=== PATIENT | female | born 1985 | race Caucasian/White ===

== ENCOUNTER 2023-06-12 10:36 | Outpatient (OUT) | payer MEDICAID, SELFPAY ==
[2023-06-12 11:12] LABS: Basophils Absolute Auto 0.1 10^3/uL (0.0-0.1); Basophils Percent Auto 0.8 % (0.2-2.0); Eosinophils Absolute Auto 0.1 10^3/uL (0.0-0.7); Eosinophils Percent Auto 1.4 % (0.9-7.0); Hematocrit 39.7 % (36.0-48.0); Hemoglobin 12.7 g/dL (12.0-16.0); Immature Granulocytes Abs Auto 0.02 10^3/uL (0.00-0.03); Immature Granulocytes Pct Auto 0.3 % (0.0-0.5); Lymphocytes Absolute Auto 1.5 10^3/uL (1.2-3.8); Lymphocytes Percent Auto 20.6 % (20.5-60.0); Mean Corpuscular Hemoglobin 27.5 pg (26.7-34.0); Mean Corpuscular Volume 85.9 fL (81.0-99.0); Mean Platelet Volume 10.8 fL (9.5-13.5); Monocytes Absolute Auto 0.5 10^3/uL (0.3-0.8); Monocytes Percent Auto 6.8 % (1.7-12.0); Neutrophils Absolute Auto 5.2 10^3/uL (1.4-6.5); Neutrophils Percent Auto 70.1 % (43.0-75.0); Platelet Count 315 10^3/uL (150-450); Red Blood Count 4.62 10^6/uL (4.20-5.40); Red Cell Distribution Width 12.6 % (11.0-15.0); White Blood Count 7.4 10^3/uL (4.0-11.0)
[2023-06-12 11:33] LABS: Alanine Aminotransferase 20 U/L (14-59); Albumin Globulin Ratio 0.9; Albumin Level 3.5 g/dL (3.4-5.0); Alkaline Phosphatase 69 U/L (46-116); Anion Gap 10.4; Aspartate Amino Transferase 14 U/L (15-37); BUN Creatinine Ratio 14.9; Bilirubin Total 0.3 mg/dL (0.2-1.0); Calcium 8.8 mg/dL (8.5-10.1); Carbon Dioxide 29.3 mmol/L (21.0-32.0); Chloride 104 mmol/L (98-107); Chol HDL Ratio 2.3; Cholesterol 173 mg/dL (<=200); Estimated GFR (African America >60 (>=60); Estimated GFR (Non-African Ame >60 (>=60); Globulin 3.8 g/dL; Glucose 103 mg/dL (74-106); HDL Cholesterol 76 mg/dL (40-60); Potassium 3.7 mmol/L (3.5-5.1); Sodium 140 mmol/L (136-145); Total Protein 7.3 g/dL (6.4-8.2); Triglycerides 55 mg/dL (<=150)
[2023-06-12 11:56] LABS: Estimated Average Glucose 128 mg/dL; Glycohemoglobin A1C 6.1 % (4.5-6.2)
[2023-06-12 14:56] LABS: TSH W/ REFLEX FT4 1.846 (0.358-3.740)
[2023-06-13 06:09] LABS: HCV Ab Non Reactive (Non Reactive); HIV Ab/p24 Ag Screen Non Reactive (Non Reactive)
== END 2023-06-12 10:37 | disposition home or self-care (01) ==
LOC: LAB 10:45
PROVIDERS: PCP Nurse Practitioner Primary Care; Visit Provider Nurse Practitioner Primary Care
DX: Z11.59 Encounter for screening for other viral diseases (principal); Z00.00 Encounter for general adult medical examination without abnormal findings; Z13.29 Encounter for screening for other suspected endocrine disorder; Z11.4 Encounter for screening for human immunodeficiency virus [HIV]
CPT/HCPCS: 36415; 80053; 80061; 83036; 84443; 85025; 86803; 87389

== ENCOUNTER 2023-09-02 21:16 | Outpatient (REF) | payer MEDICAID, SELFPAY ==
--- OUTSIDE RECORDS SUMMARY | 2023-09-02 21:19 | XMS_ITS | CCD ---
Author Name Unknown Address [address] [place] [address] Organization [facility] Care Team Providers Care Procurement Clerk Name Role Phone AKUA SELLERS Primary Care Unavailable BELLE, MONIQUE DASILVA Admitting Unavai lable KARASIK, DR RAIN Admitting Unavailable KARASIK, DR RAIN Attending Unavailable KARASIK, DR RAIN Consulting Unavailable ZIEBER, DR EMY Siddiqui Consulting Unavailable KARASIK, DR RAIN Admitting Unavailable KARASIK, DR RAIN Attending Unavailable KARASIK, DR RAIN Consulting Unavailable SHAMMO, GLORIA Admitting Unavailable SHAMMO, GLORIA Attending Unavailable SHAMMO, GLORIA Primary Care Unavailable SHAMMO, GLORIA Consulting Unavailable CAROLYN HOPKINS Admitting Unavailable KELLIECAROLYN BEYER Attending Unavailable SHAMMO, GLORIA Primary Care Unavailable CAROLYN HOPKINS Consulting Unavailable Problems Active Problems Problem Classification Problem Date Documented Date Episodic/Chronic Immunizations and screening for infectious disease (1 source) Encounter for screening for human papillomavirus (HPV); Translations: [ENC SCREENING HUMAN PAPILLOMAVIRUS] Onset: 08-30-2022 Episodic Other screening for suspected conditions (not mental disorders or infectious disease) (6 sources) Encounter for screening for malignant neoplasm of cervix; Translations: [Encounter for screening for cardiovascular disorders] Onset: 05-18-2022 Episodic Past or Other Problems Problem Classification Problem Date Documented Da te Episodic/Chronic Abdominal pain (4 sources) Pelvic and perineal pain; Translations: [PELVIC AND PERINEAL PAIN] Onset: 11-08-2021 Episodic Results Test Name Value Interpretation Reference Range Facility PAP ACOG PANEL 2: 30 to 65on 09-04-2022 . . Normal [facility] Comment on above: Result Comment: Perf ormed at: WB Performed By: #### [id number] #### [facility] [address] [address] [address] Jaquan Egan Age Gdln ACOG Testing 30-65 Normal [facility] Comment on above: Performed By: #### [id number] #### [facility] [address] [place] [address] Dr. Jaquan Egan DIAGNOSIS: Comment Normal [facility] Comment on above: Result Comment: NEGA TIVE FOR INTRAEPITHELIAL LESION OR MALIGNANCY. Performed at: WB Performed By: #### [id number] #### [facility] [address] [place] [address] Dr. Jaquan Egan HPV Aptima Negative Normal Negative [facility] Comment on above: Result Comment: This nucleic acid amplification test detects fourteen high-risk HPV types (16,18,31,33,35,39,45,51,52,56,58,59,66,68) without differentiation. Performed at: =G Performed By: #### [id number] #### [facility] [address] [place] [address] Dr. Jaquan Egan HPV Genotype Reflex Comment Normal [facility] Comment on above: Result Comment: Crit eria not met, HPV Genotype not performed. Performed at: WB Performed By: #### [id number] #### [facility] [address] [place] [address] Dr. Jaquan Egan Methodology: Comment [facility] Comment on above: Result Comment: This liquid based ThinPrep(R) pap test was screened with the use of an image guided system. Performed at: WB Performed By: #### [id number] #### [facility] [address] [place] [address] Dr. Jaquan Egan Note: Comment Normal [facility] Comment on above: Result Comment: The Pap smear is a screening test designed to aid in the detection of premalignant and malignant conditions of the uterine cervix. It is not a diagnostic procedure and should not be used as the sole means of detecting cervical cancer. Both false-positive and false-negative reports do occur. . Performed at: WB Performed By: #### [id number] #### [facility] [address] [place] [address] Dr. Jaquan Egan Performed by: Comment Normal [facility] Comment on above: Result Comment: Duc Lewis, Insurance Licensing Supervisor (ASCP) Performed at: WB Performed By: #### [id number] #### [facility] [address] [place] [address] Dr. Jaquan Egan Specimen adequacy: Comment Normal [facility] Comment on above: Result Comment: Sati sfactory for evaluation. No endocervical component is identified. Performed at: WB Performed By: #### [id number] #### [facility] [address] [place] [address] Dr. Jaquan Egan CBC AUTO DIFFon 05-15-2022 BASO # 0.1 103/ul Normal 0.0-0.1 [facility] Comment on above: Performed By: #### C BC #### [facility] [address] [place] [address] Dr. Jaquan Egan Basophils/100 WBC (Bld) 0.8 % Normal 0.2-2.0 [facility] Comment on above: Performed By: #### C BC #### [facility] [address] [place] [address] Dr. Jaquan Egan EO # 0.1 103/ul Normal 0.0-0.7 [facility] Comment on above: Performed By: #### C BC #### [facility] [address] [place] [address] Dr. Jaquan Egan Eosinophils/100 WBC (Bld) 1.6 % Normal 0.9-7.0 [facility] Comment on above: Performed By: #### C BC #### [facility] [address] [place] [address] Dr. Jaquan Egan Erythrocyte distribution width (RBC) [Ratio] 12.8 % Normal 11.0-15.0 [facility] Comment on above: Performed By: #### C BC #### [facility] [address] [place] [address] Dr. Jaquan Egan Hematocrit (Bld) [Volume fraction] 41.5 % Normal 36.0-48.0 [facility] Comment on above: Performed By: #### C BC #### [facility] [address] [place] [address] Dr. Jaquan Egan Hemoglobin (Bld) [Mass/Vol] 13.0 g/dL Normal 12.0-16.0 [facility] Comment on above: Performed By: #### C BC #### [facility] [address] [place] [address] Dr. Jaquan Egan IG # 0.02 10e3/ul Normal 0.00-0.03 [facility] Comment on above: Performed By: #### C BC #### [facility] [address] [place] [address] Dr. Jaquan Egan IG % 0.3 % Normal 0.0-0.5 [facility] Comment on above: Performed By: #### C BC #### [facility] [address] [place] [address] Dr. Jaquan Egan LYMPH # 1.7 103/ul Normal 1.2-3.8 [facility] Comment on above: Performed By: #### C BC #### [facility] [address] [place] [address] Dr. Jaquan Egan Lymphocytes/100 WBC (Bld) 22.2 % Normal 20.5-60.0 [facility] Comment on above: Performed By: #### C BC #### [facility] [address] [place] [address] Dr. Jaquan Egan MANUAL DIFF REQ NO Normal [facility] Comment on above: Performed By: #### C BC #### [facility] [address] [place] [address] Dr. Jaquan Egan MCH (RBC) [Entitic mass] 26.5 pg Critically low 26.7-34.0 [facility] Comment on above: Performed By: #### C BC #### [facility] [address] [place] [address] Dr. Jaquan Egan MCHC (RBC) [Mass/Vol] 31.3 g/dL Normal 29.9-35.2 [facility] Comment on above: Performed By: #### C BC #### [facility] [address] [place] [address] Dr. Jaquan Egan MCV (RBC) [Entitic vol] 84.7 fL Normal 81.0-99.0 [facility] Comment on above: Performed By: #### C BC #### [facility] [address] [place] [address] Dr. Jaquan Egan MONO # 0.5 103/ul Normal 0.3-0.8 [facility] Comment on above: Performed By: #### C BC #### [facility] [address] [place] [address] Dr. Jaquan Egan Monocytes/100 WBC (Bld) 6.8 % Normal 1.7-12.0 [facility] Comment on above: Performed By: #### C BC #### [facility] [address] [place] [address] Dr. Jaquan Egan NEUT # 5.1 103/ul Normal 1.4-6.5 [facility] Comment on above: Performed By: #### C BC #### [facility] [address] [place] [address] Dr. Jaquan Egan Neutrophils/100 WBC (Bld) 68.3 % Normal 43.0-75.0 [facility] Comment on above: Performed By: #### C BC #### [facility] [address] [place] [address] Dr. Jaquan Egan Platelet mean volume (Bld) [Entitic vol] 10.0 fL Normal 9.5-13.5 [facility] Comment on above: Performed By: #### C BC #### [facility] [address] [place] [address] Dr. Jaquan Egan PLT 361 103/ul Normal 150-450 [facility] Comment on above: Performed By: #### C BC #### [facility] [address] [place] [address] Dr. Jaquan Egan RBC 4.90 106/ul Normal 4.20-5.40 [facility] Comment on above: Performed By: #### C BC #### [facility] [address] [place] [address] Dr. Jaquan Egan WBC 7.5 103/ul Normal 4.0-11.0 [facility] Comment on above: Performed By: #### C BC #### [facility] [address] [address] [address] Jaquan Egan GLYCOHEMOGLOBIN A1Con 2021 ADA RECOMMENDATION SEE BELOW Normal [facility] Comment on above: Result Comment: ADA RECOMMENDED LIMIT 4.0 - 6.0 ADA THERAPEUTIC TARGET < 7.0 ACTION SUGGESTED > 7.0 Performed By: #### A 1C #### [facility] [address] [address] [address] Jaquan Egan Glucose [Mass/Vol] 111 mg/dL Normal [facility] Comment on above: Performed By: #### A 1C #### [facility] [address] [address] [address] Jaquan Egan HbA1c (Bld) [Mass fraction] 5.5 % Normal 4.5-6.2 [facility] Comment on above: Performed By: #### A 1C #### [facility] [address] [address] [address] Jaquan Egan LIPID PROFILEon 05-15-2022 CHOL-HDL RATIO NORM SEE BELOW Normal [facility] Comment on above: Result Comment: 3.3 - 4.4 LOW RISK 4.4 - 7.1 AVERAGE RISK 7.1 - 11.0 MODERATE RISK >11.0 HIGH RISK Performed By: #### L IPID, CMP, TSH #### [facility] [address] [address] [address] Jaquan Egan Cholesterol [Mass/Vol] 182 mg/dL Normal <=200 [facility] Comment on above: Performed By: #### L IPID, CMP, TSH #### [facility] [address] [address] [address] Jaquan Egan Cholesterol in HDL [Mass/Vol] 68 mg/dL Critically high 40-60 [facility] Comment on above: Performed By: #### L IPID, CMP, TSH #### [facility] [address] [address] [address] Jaquan Egan Cholesterol in LDL [Mass/Vol] 105.8 mg/dL Normal [facility] Comment on above: Performed By: #### L IPID, CMP, TSH #### [facility] [address] [address] [address] Jaquan Egan Cholesterol.total/Cho lesterol in HDL [Mass ratio] 2.7 {ratio} Normal [facility] Comment on above: Performed By: #### L IPID, CMP, TSH #### [facility] [address] [address] [address] Jaquan Egan HDL NORMAL > or = 60 mg/dl - LO W CARDIOVASCULAR RISK <40 mg/dl - HIGH CARDIOVASCULAR RISK Normal [facility] Comment on above: Performed By: #### L IPID, CMP, TSH #### [facility] [address] [address] [address] Jaquan Egan LDL CALC NORMAL SEE BELOW Normal [facility] Comment on above: Result Comment: <100 mg/dl OPTIMAL 100 - 129 mg/dl NEAR OR ABOVE OPTIMAL 130 - 159 mg/dl BORDERLINE HIGH 160 - 189 mg/dl HIGH >190 mg/dl VERY HIGH Performed By: #### L IPID, CMP, TSH #### [facility] [address] [address] [address] Jaquan Egan Triglyceride [Mass/Vol] 41 mg/dL Normal <=150 [facility] Comment on above: Performed By: #### L IPID, CMP, TSH #### [facility] [address] [address] [address] Jaquan Egan VLDL CALC 8.2 mg/dL Normal [facility] Comment on above: Performed By: #### L IPID, CMP, TSH #### [facility] [address] [address] [address] Jaquan Egan PROF 14(COMP METB)on 022 Albumin [Mass/Vol] 3.7 g/dL Normal 3.4-5.0 [facility] Comment on above: Performed By: #### L IPID, CMP, TSH #### [facility] [address] [address] [address] Jaquan Egan Albumin/Globulin [Mass ratio] 0.9 {ratio} Normal [facility] Comment on above: Performed By: #### L IPID, CMP, TSH #### [facility] [address] [address] [address] Jaquan Egan ALP [Catalytic activity/Vol] 85 U/L Normal 46-116 [facility] Comment on above: Performed By: #### L IPID, CMP, TSH #### [facility] [address] [address] [address] Jaquan Egan ALT [Catalytic activity/Vol] 18 U/L Normal 14-59 [facility] Comment on above: Performed By: #### L IPID, CMP, TSH #### [facility] [address] [address] [address] Jaquan Egan Anion gap [Moles/Vol] 9.8 mmol/L Normal [facility] Comment on above: Performed By: #### L IPID, CMP, TSH #### [facility] [address] [address] [address] Jaquan Egan AST [Catalytic activity/Vol] 13 U/L Critically low 15-37 [facility] Comment on above: Performed By: #### L IPID, CMP, TSH #### [facility] [address] [address] [address] Jaquan Egan Bilirubin [Mass/Vol] 0.3 mg/dL Normal 0.2-1.0 [facility] Comment on above: Performed By: #### L IPID, CMP, TSH #### [facility] [address] [address] [address] Jaquan Egan Calcium [Mass/Vol] 8.8 mg/dL Normal 8.5-10.1 [facility] Comment on above: Performed By: #### L IPID, CMP, TSH #### [facility] [address] [address] [address] Jaquan Egan Chloride [Moles/Vol] 104 mmol/L Normal 98-107 [facility] Comment on above: Performed By: #### L IPID, CMP, TSH #### [facility] [address] [address] [address] Jaquan Egan CO2 [Moles/Vol] 26.0 mmol/L Normal 21.0-32.0 [facility] Comment on above: Performed By: #### L IPID, CMP, TSH #### [facility] [address] [address] [address] Jaquan Egan Creatinine [Mass/Vol] 0.78 mg/dL Normal 0.55-1.02 [facility] Comment on above: Performed By: #### L IPID, CMP, TSH #### [facility] [address] [address] [address] Jaquan Egan EGFR-AF ECUADOREAN >60 Normal >=60 [facility] Comment on above: Performed By: #### L IPID, CMP, TSH #### [facility] [address] [address] [address] Jaquan Egan EGFR-NON AF ECUADOREAN >60 Normal >=60 [facility] Comment on above: Performed By: #### L IPID, CMP, TSH #### [facility] [address] [address] [address] Jaquan Egan Globulin (S) [Mass/Vol] 4.0 g/dL Normal [facility] Comment on above: Performed By: #### L IPID, CMP, TSH #### [facility] [address] [address] [address] Jaquan Egan Glucose [Mass/Vol] 100 mg/dL Normal 74-106 [facility] Comment on above: Performed By: #### L IPID, CMP, TSH #### [facility] [address] [address] [address] Jaquan Egan Potassium [Moles/Vol] 3.8 mmol/L Normal 3.5-5.1 [facility] Comment on above: Performed By: #### L IPID, CMP, TSH #### [facility] [address] [address] [address] Jaquan Egan Protein [Mass/Vol] 7.7 g/dL Normal 6.4-8.2 [facility] Comment on above: Performed By: #### L IPID, CMP, TSH #### [facility] [address] [address] [address] Jaquan Egan Sodium [Moles/Vol] 136 mmol/L Normal 136-145 [facility] Comment on above: Performed By: #### L KB ESPINOZA, TSH #### [facility] [address] [place], [place] [address] Dr. Jaquan Egan Urea nitrogen [Mass/Vol] 12.0 mg/dL Normal 7.0-18.0 [facility] Comment on above: Performed By: #### L KB ESPINOZA, TSH #### [facility] [address] [place], [place] [address] Dr. Jaquan Egan Urea nitrogen/Creatinine [Mass ratio] 15.4 mg/mg Normal [facility] Comment on above: Performed By: #### L KB ESPINOZA, TSH #### [facility] [address] [place], [place] [address] Dr. Jaquan Egan TSHon 05-15-2022 TSH 2.187 uIU/mL Normal 0.358-3.740 [facility] Comment on above: Performed By: #### L KB ESPINOZA, TSH #### [facility] [address] [place], [place] [address] Dr. Jaquan Egan US PELVIS AND TRANSVAGon US PELVIS AND TRANSVAG EXAMINATION: US PELVIS AND TRANSVAG HISTORY: Pelvic and perineal pain COMPARISON: Ultrasound pelvis 01/03/2021 TECHNIQUE: Transabdominal and transvaginal sonographic examination. FINDINGS: UTERUS: Hysterectomy. RIGHT OVARY: Normal size and appearance. Duplex Doppler demonstrates normal waveform and flow; resistive index 0.7. Ovary size: 2.9 x 1.3 x 1.9 cm LEFT OVARY: Normal size and appearance. Duplex Doppler demonstrates normal waveform and flow; resistive index 0.6. Ovary size: 3.0 x 1.1 x 2.2 cm CUL-DE-SAC: Unremarkable. No significant free fluid. BLADDER: Unremarkable. OTHER: None. IMPRESSION: 1. Unremarkable post hysterectomy ultrasound. No suspicious findings. Electronically authenticated by: EMY MORTON Date: 2021-11-08 10:51 Normal [facility] PAP ACOG PANEL 2: 30 to 65on 11-07-2021 . . Normal [facility] Comment on above: Result Comment: Perf ormed at: WB Performed By: #### [id number] #### [facility] [address] [place] [address] Dr. Jaquan Egan Age Gdln ACOG Testing 30-65 [facility] Comment on above: Performed By: #### 4 [id number] #### [facility] [address] [place] [address] Dr. Jaquan Egan DIAGNOSIS: Comment Normal [facility] Comment on above: Result Comment: NEGA TIVE FOR INTRAEPITHELIAL LESION OR MALIGNANCY. Performed at: WB Performed By: #### 4 [id number] #### [facility] [address] [place] [address] Dr. Jaquan Egan HPV Aptima Negative Normal [facility] Comment on above: Result Comment: This nucleic acid amplification test detects fourteen high-risk HPV types (16,18,31,33,35,39,45,51,52,56,58,59,66,68) without differentiation. Performed at: =G Performed By: #### [id number] #### [facility] [address] [place] [address] Dr. Jaquan Egan Methodology: Comment [facility] Comment on above: Result Comment: This liquid based ThinPrep(R) pap test was screened with the use of an image guided system. Performed at: WB Performed By: #### 4 [id number] #### [facility] [address] [place] [address] Dr. Jaquan Egan Note: Comment [facility] Comment on above: Result Comment: The Pap smear is a screening test designed to aid in the detection of premalignant and malignant conditions of the uterine cervix. It is not a diagnostic procedure and should not be used as the sole means of detecting cervical cancer. Both false-positive and false-negative reports do occur. . Performed at: WB Performed By: #### [id number] #### [facility] [address] [place] [address] Dr. Jaquan Egan Performed by: Comment Normal [facility] Comment on above: Result Comment: Guevara Terrance, Insurance Licensing Supervisor (ASCP) Performed at: WB Performed By: #### 4 [id number] #### [facility] [address] [place], [place] [address] Dr. Jaquan Egan Specimen adequacy: Comment Normal [facility] Comment on above: Result Comment: Sati sfactory for evaluation. No endocervical component is identified. Performed at: WB Performed By: #### 4 [id number] #### [facility] [address] [place], [place] [address] Dr. Jaquan Egan Encounters Encounter Date Encounter Type Care Provider Facility Start: 08-29-2022 End: 08-29-2022 ambulatory CAROLYN HOPKINS Facility:[facility] Start: 05-18-2022 [facility]counter [facility] l [facility]: 05-15-2022 End: 05-16-2022 ambulatory GLORIA DARIA Facility:[facility] Start: 05-15-2022 End: 05-16-2022 Encounter for general adult medical examination without abnormal findings GLORIA DARIA Facility:[facility] Start: 11-08-2021 End: 11-09-[address] KOFFI GALLARDO Facility:[facility] Start: 10-31-2021 End: 10-31-[address] KOFFI GALLARDO Facility:[facility] Start: 02-20-2021 End: 02-24-2021 ambulatory [facility] Payers Date Payer Category Payer Unknown [id number] 1984 Unknown [id number] 09.13.83 [id number] 1984 Unknown [id number] 09.13.83 [id number] 1984 Unknown [id number] 09.13.83 [id number] 1984 Unknown [id number] 09.13.83 [id number] 1959 Unknown [id number] Summary Purpose Family History No Family History Records FoundNo Family History Records Found Advance Directives No Advanced Directives Records FoundNo Advanced Directives Records Found Additional Source Comments INFORMATION SOURCE (unrecogn ized section and content) DATE CREATED AUTHOR 02/25/2021 [facility] DATE CREATED AUTHOR AUTHOR'S MALIA NOONAN 09/04/[address] [facility] FOR RECORDS PERTAINING TO PATIENTS WHO ARE OR HAVE BEEN ENROLLED IN A CHEMICAL DEPENDENCY/SUBSTANCEABUSE PROGRAM, SOME INFORMATION MAY BE OMITTED. This clinical summary was aggregated from multiple sources. Caution should be exercised in using it in the provision of clinical care. This summary normalizes information from multiple sources, and as a consequence, information in this document may materially change the coding, format and clinical context of patient data. In addition, data may be omitted in some cases. CLINICAL DECISIONS SHOULD BE BASED ON THE PRIMARY CLINICAL RECORDS. [facility] [employer] provides no warranty or guarantee of the accuracy or completeness of information in this document.
[2023-09-05 15:09] LABS: Age Gdln ACOG Testing Note (.); HPV Aptima Negative (Negative); IGP, Aptima HPV, rfx 16/18,45 Note (.)
== END 2023-09-02 21:17 | disposition home or self-care (01) ==
LOC: LAB 21:16
PROVIDERS: PCP Nurse Practitioner Primary Care; Visit Provider Obstetrics & Gynecology
DX: Z01.419 Encounter for gynecological examination (general) (routine) without abnormal findings (principal)
CPT/HCPCS: 87624; G0145

== ENCOUNTER 2024-09-18 09:32 | Outpatient (RCR) | payer MEDICAID, SELFPAY | END 2024-09-25 09:48 | disposition home or self-care (01) | LOC: PT 09:32 | PROVIDERS: PCP Nurse Practitioner Primary Care; Visit Provider Internal Medicine | DX: M54.12 Radiculopathy, cervical region (principal) | CPT/HCPCS: 97110; 97140; 97162 ==

== ENCOUNTER 2024-09-25 17:43 | Emergency (ER) | payer MEDICAID, SELFPAY ==
[2024-09-25 17:48] VITALS: BP 142/84; PULSE 110; TEMP 37.1; O2SAT 99; BMI 29.8
--- OUTSIDE RECORDS SUMMARY | 2024-09-25 18:24 | XMS_ITS | CCD ---
Author Organization [facility] Care Team Providers Care Housekeeper Child Care Name Role Phone AKUA SELLERS Primary Care Unavailable BARBRA, MONIQUE DASILVA Admitting Unavai lable KARASIK, DR RAIN Admitting Unavailable KARASIK, DR RAIN Attending Unavailable KARASIK, DR RAIN Consulting Unavailable ZIEBER, DR EMY Siddiqui Consulting Unavailable KARASIK, DR RAIN Admitting Unavailable KARASIK, DR RAIN Attending Unavailable KARASIK, DR RAIN Consulting Unavailable SHAMMO, GLORIA Admitting Unavailable SHAMMO, GLORIA Attending Unavailable SHAMMO, GLORIA Primary Care Unavailable SHAMMO, GLORIA Consulting Unavailable CAROLYN HOPKINS Admitting Unavailable CAROLYN HOPKINS Attending Unavailable SHAMMO, GLORIA Primary Care Unavailable CAROLYN HOPKINS Consulting Unavailable Unavailable Primary Care Provider UnavailLALITHA Kumar Attending Unavailable CELE ONEAL Attending Unavailable Medications Current Medications Medication Drug Class(es) Dates Sig (Normalized) Sig (Original) amitriptyline hydrochloride 25 mg oral tablet (2 sources) Tricyclic Antidepressant Start: 09-19-2023 amitriptyline (Elavil) 25 MG tablet TAKE 1/2-1 TABLET AT EVERY DAY AT BEDTIME 09/19/2023 Active Cannabinoids (medical cannabis) (5 sources) Cannabinoids (medical cannabis) Medical Marijuana Active Cannabinoids (me dical cannabis) Medical Marijuana 0 Active emtricitabine 200 mg / tenofovir disoproxil fumarate 300 mg oral tablet (2 sources) Human Immunodeficiency Virus Nucleoside Analog Reverse Transcriptase Inhibitor Start: 01-16-2024 take 1 tablet by mouth once daily emtricitabine-tenofovir DF (Truvada) 200-300 MG tablet Take 1 tablet by mouth Daily 01/16/2024 Active tiZANidine 4 mg oral tablet (5 sources) Central alpha-2 Adrenergic Agonist Start: 08-13-2023 End: 04-28-2024 take 1 tablet by mouth at bedtime tiZANidine (Zanaflex) 4 MG tablet TAKE 1/2 TO 1 TABLET BY MOUTH AT BEDTIME 08/13/2023 04/28/2024 Discontinued 24 hr venlafaxine 150 mg extended release oral capsule (7 sources) Serotonin and Norepinephrine Reuptake Inhibitor Start: 03-27-2024 take 1 capsule by mouth once daily at mealtime venlafaxine XR (Effexor XR) 150 MG 24 hr capsule TAKE 1 CAPSULE BY MOUTH EVERY DAY WITH FOOD FOR 30 DAYS 03/27/2024 Active Start: 06-26-2023 take 1 capsule by [facility] once daily at mealtime venlafaxine XR (Effexor XR) 37.5 MG 24 hr capsule TAKE 1 CAPSULE BY MOUTH EVERY DAY WITH FOOD FOR 30 DAYS 06/26/2023 Active Problems Active Problems Problem Classification Problem Date Documented Date Episodic/Chronic Immunizations and screening for infectious disease (1 source) Encounter for screening for human papillomavirus (HPV); Translations: [ENC SCREENING HUMAN PAPILLOMAVIRUS] Onset: 08-30-2022 Episodic Neoplasms of unspecified nature or uncertain behavior (2 sources) Neoplastic disease; Translations: [Neoplasm of unspecified behavior of bone, soft tissue, and skin] 04-28-2024 Episodic Other screening for suspected conditions (not [...] Test Name Value Interpretation Reference Range Facility No Panel Informationon 04-28 Type of biopsy: tangential Informed consent: discussed and consent obtained Informed consent comment: The risks and benefits of the biopsy were discussed. Risks include but are not limited to bleeding, infection, scarring, pain, and nerve damage. An opportunity to ask questions prior to the procedure was permitted and all questions were answered. Patient was prepped and draped in usual sterile fashion: area cleansed with alcohol. Anesthesia: the lesion was anesthetized in a standard fashion Anesthetic: 1% lidocaine w/ epinephrine 1-100,000 buffered w/ 8.4% NaHCO3 Instrument used: DermaBlade Hemostasis achieved with: electrodesiccation Outcome: patient tolerated procedure well Outcome comment: The specimen was placed in a prelabeled formalin container to be sent for pathology Post-procedure details: sterile dressing applied and wound care instructions given Post-procedure details comment: Emphasized need to contact clinic for any signs of infection, uncontrollable bleeding, or complications. Dressing type: bandage Additional details: Photo taken Amount of lidocaine used: 1.0 cc [facility] IGP,APTIMA HPV,AGE GDLNon AGE GDLN ACOG TESTING Note . [facility] Comment on above: TESTS RESULT FLAG UN ITS REF RANGE LAB Clinician Provided Cytology Information Source.............Vagina No. of containers..01 ThinPrep Vial Age Algo ACOG Nataly... FLAG LEGEND: L-Low Normal,H-High Normal,LL-Alert Low,HH-Alert High <-Panic Low,>-Panic High,A-Abnormal,AA-Critical Abnormal Performed at: 01 =G [facility] [place] [place] [address] Yaima Gould MD, HPV APTIMA Negative Negative [facility] Comment on above: This nucleic acid am plification test detects fourteen high- risk HPV types (16,18,31,33,35,39,45,51,52,56,58,59,66,68) without differentiation. Performed at: =G [address], [place] [id number] Vpk Teacher: Yaima Gould MD, Phone: [phone] Performed at: - [address] [id number] Vpk Teacher: Yaima Gould MD, Phone: [phone] IGP, APTIMA HPV, RFX 16/18,45 Note . [facility] Comment on above: TESTS RESULT FLAG UN ITS REF RANGE LAB DIAGNOSIS: 02 NEGATIVE FOR INTRAEPITHELIAL LESION OR MALIGNANCY. Specimen adequacy: 02 Satisfactory for evaluation. Performed by: Irish Melendez, Traffic Signal Supervisor Maintenance ([facility]) . 02 Note: Note 02 The Pap smear is a screening test designed to aid in the detection of premalignant and malignant conditions of the uterine cervix. It is not a diagnostic procedure and should not be used as the sole means of detecting cervical cancer. Both false-positive and false-negative reports do occur. Test Methodology: Note 02 This liquid based ThinPrep(R) pap test was screened with the use of an image guided system. HPV Genotype Reflex Note 02 Criteria not met, HPV Genotype not performed. FLAG LEGEND: L-Low Normal,H-High Normal,LL-Alert Low,HH-Alert High <-Panic Low,>-Panic High,A-Abnormal,AA-Critical Abnormal Performed at: [facility] [address] [place] [address] Yaima Gould MD, SPATULA-ALONE VAGINA [facility] URETHRITIS/DISCHARGE PLUS VA GINITIS (HTRX)on 09-04-2023 ATOPOBIUM VAGINAE 0 [facility] ATOPOBIUM VAGINAE Not detected [facility] BVAB 2,3 (BACTERIAL VAGINOSIS ASSOCIATED BACTERIA 2, 3); MOBILUNCUS SPP 0 [facility] Healthcare BVAB 2,3 (BACTERIAL VAGINOSIS ASSOCIATED BACTERIA 2, 3); MOBILUNCUS SPP Not detected [facility] TERRANCE ALBICANS, PARAPSILOSIS, TROPICALIS 0 [facility] TERRANCE ALBICANS, PARAPSILOSIS, TROPICALIS Not detected [facility] TERRANCE GLABRATA 0 [facility] TERRANCE GLABRATA Not detected [facility] TERRANCE KRUSEI 0 [facility] TERRANCE KRUSEI Not detected [facility] CHLAMYDIA TRACHOMATIS 0 [facility] CHLAMYDIA TRACHOMATIS Not detected [facility] Healthcare GARDNERELLA VAGINALIS 0 [facility] GARDNERELLA VAGINALIS Not detected [facility] MEGASPHAERA (TYPES 1, 2) 0 [facility] Healthcare MEGASPHAERA (TYPES 1, 2) Not detected [facility] MYCOPLASMA GENITALIUM 0 [facility] MYCOPLASMA GENITALIUM Not detected [facility] NEISSERIA GONORRHOEAE 0 [facility] Healthcare NEISSERIA GONORRHOEAE Not detected [facility] TRICHOMONAS VAGINALIS 0 [facility] TRICHOMONAS VAGINALIS Not detected [facility] Healthcare PAP ACOG PANEL 2: 30 to 65on 09-04-2022 . . Normal [facility] Comment on above: Result Comment: Perf ormed at: WB Performed By: #### [id number] #### [facility] [address] [address] [address] Jaquan Egan Age Gdln ACOG Testing 30-65 Normal [facility] Comment on above: Performed By: #### [id number] #### [facility] [address] [address] [address] Jaquan Egan DIAGNOSIS: Comment Normal [facility] Comment on above: Result Comment: NEGA TIVE FOR INTRAEPITHELIAL LESION OR MALIGNANCY. Performed at: WB Performed By: #### [id number] #### [facility] [address] [address] [address] Jaquan Egan HPV Aptima Negative Normal Negative [facility] Comment on above: Result Comment: This nucleic acid amplification test detects fourteen high-risk HPV types (16,18,31,33,35,39,45,51,52,56,58,59,66,68) without differentiation. Performed at: =G Performed By: #### [id number] #### [facility] [address] [place] [address] Dr. Jaquan Egan HPV Genotype Reflex Comment Normal [facility] Comment on above: Result Comment: Crit eria not met, HPV Genotype not performed. Performed at: WB Performed By: #### [id number] #### [facility] [address] [place] [address] Dr. Jaquan Egan Methodology: Comment Normal [facility] Comment on above: Result Comment: This liquid based ThinPrep(R) pap test was screened with the use of an image guided system. Performed at: WB Performed By: #### [id number] #### [facility] [address] [place] [address] Dr. Jaquan Egan Note: Comment Normal [facility] Comment on above: Result Comment: The Pap smear is a screening test designed to aid in the detection of premalignant and malignant conditions of the uterine cervix. It is not a diagnostic procedure and should not be used as the sole means of detecting cervical cancer. Both false-positive and false-negative reports do occur. . Performed at: WB Performed By: #### [id number] #### [facility] [address] [place] [address] Dr. Jaquan Egan Performed by: Comment Normal [facility] Comment on above: Result Comment: Duc Lewis, Traffic Signal Supervisor Maintenance ([facility]) Performed at: WB Performed By: #### [id number] #### [facility] [address] [place] [address] Dr. Jaquan Egan Specimen adequacy: Comment Normal [facility] Comment on above: Result Comment: Sati sfactory for evaluation. No endocervical component is identified. Performed at: WB Performed By: #### [id number] #### [facility] [address] [place] [address] Dr. Jaquan Egan CBC AUTO DIFFon 05-15-2022 BASO # 0.1 103/ul Normal 0.0-0.1 [facility] Comment on above: Performed By: #### C BC #### [facility] [address] [place] [address] Dr. Jaquan Egan Basophils/100 WBC (Bld) 0.8 % Normal 0.2-2.0 [facility] Comment on above: Performed By: #### C BC #### [facility] [address] [place] [address] Dr. Jaquan Egan EO # 0.1 103/ul Normal 0.0-0.7 [facility] Comment on above: Performed By: #### C BC #### [facility] [address] [place] [address] Dr. Jaquan Egan Eosinophils/100 WBC (Bld) 1.6 % Normal 0.9-7.0 [facility] Comment on above: Performed By: #### C BC #### [facility] [address] [place] [address] Dr. Jaquan Egan Erythrocyte distribution width (RBC) [Ratio] 12.8 % Normal 11.0-15.0 [facility] Comment on above: Performed By: #### C BC #### [facility] [address] [place] [address] Dr. Jaquan Egan Hematocrit (Bld) [Volume fraction] 41.5 % Normal 36.0-48.0 [facility] Comment on above: Performed By: #### C BC #### [facility] [address] [place] [address] Dr. Jaquan Egan Hemoglobin (Bld) [Mass/Vol] 13.0 g/dL Normal 12.0-16.0 [facility] Comment on above: Performed By: #### C BC #### [facility] [address] [place] [address] Dr. Jaquan Egan IG # 0.02 10e3/ul Normal 0.00-0.03 [facility] Comment on above: Performed By: #### C BC #### [facility] [address] [place] [address] Dr. Jaquan Egan IG % 0.3 % Normal 0.0-0.5 [facility] Comment on above: Performed By: #### C BC #### [facility] [address] [place] [address] Dr. Jaquan Egan LYMPH # 1.7 103/ul Normal 1.2-3.8 [facility] Comment on above: Performed By: #### C BC #### [facility] [address] [place] [address] Dr. Jaquan Egan Lymphocytes/100 WBC (Bld) 22.2 % Normal 20.5-60.0 [facility] Comment on above: Performed By: #### C BC #### [facility] [address] [place] [address] Dr. Jaquan Egan MANUAL DIFF REQ NO Normal [facility] Comment on above: Performed By: #### C BC #### [facility] [address] [place] [address] Dr. Jaquan Egan MCH (RBC) [Entitic mass] 26.5 pg Critically low 26.7-34.0 [facility] Comment on above: Performed By: #### C BC #### [facility] [address] [place] [address] Dr. Jaquan Egan MCHC (RBC) [Mass/Vol] 31.3 g/dL Normal 29.9-35.2 [facility] Comment on above: Performed By: #### C BC #### [facility] [address] [place] [address] Dr. Jaquan Egan MCV (RBC) [Entitic vol] 84.7 fL Normal 81.0-99.0 [facility] Comment on above: Performed By: #### C BC #### [facility] [address] [place] [address] Dr. Jaquan Egan MONO # 0.5 103/ul Normal 0.3-0.8 [facility] Comment on above: Performed By: #### C BC #### [facility] [address] [place] [address] Dr. Jaquan Egan Monocytes/100 WBC (Bld) 6.8 % Normal 1.7-12.0 [facility] Comment on above: Performed By: #### C BC #### [facility] [address] [address] [address] Jaquan Egan NEUT # 5.1 103/ul Normal 1.4-6.5 [facility] Comment on above: Performed By: #### C BC #### [facility] [address] [address] [address] Jaquan Egan Neutrophils/100 WBC (Bld) 68.3 % Normal 43.0-75.0 [facility] Comment on above: Performed By: #### C BC #### [facility] [address] [address] [address] Jaquan Egan Platelet mean volume (Bld) [Entitic vol] 10.0 fL Normal 9.5-13.5 [facility] Comment on above: Performed By: #### C BC #### [facility] [address] [place] [address] Dr. Jaquan Egan PLT 361 103/ul Normal 150-450 [facility] Comment on above: Performed By: #### C BC #### [facility] [address] [place] [address] Dr. Jaquan Egan RBC 4.90 106/ul Normal 4.20-5.40 [facility] Comment on above: Performed By: #### C BC #### [facility] [address] [place] [address] Dr. Jaquan Egan WBC 7.5 103/ul Normal 4.0-11.0 [facility] Comment on above: Performed By: #### C BC #### [facility] [address] [place] [address] Dr. Jaquan Egan GLYCOHEMOGLOBIN A1Con 2021 ADA RECOMMENDATION SEE BELOW Normal [facility] Comment on above: Result Comment: ADA RECOMMENDED LIMIT 4.0 - 6.0 ADA THERAPEUTIC TARGET < 7.0 ACTION SUGGESTED > 7.0 Performed By: #### A 1C #### [facility] [address] [place] [address] Dr. Jaquan Egan Glucose [Mass/Vol] 111 mg/dL Normal [facility] Comment on above: Performed By: #### A 1C #### [facility] [address] [address] [address] Jaquan Egan HbA1c (Bld) [Mass fraction] 5.5 % Normal 4.5-6.2 [facility] Comment on above: Performed By: #### A 1C #### [facility] [address] [address] [address] Jaquan Egan LIPID PROFILEon 05-15-2022 CHOL-HDL RATIO NORM SEE BELOW Normal [facility] Comment on above: Result Comment: 3.3 - 4.4 LOW RISK 4.4 - 7.1 AVERAGE RISK 7.1 - 11.0 MODERATE RISK >11.0 HIGH RISK Performed By: #### L IPID, CMP, TSH #### [facility] [address] [address] [address] Jaquan Egan Cholesterol [Mass/Vol] 182 mg/dL Normal <=200 [facility] Comment on above: Performed By: #### L IPID, CMP, TSH #### [facility] [address] [address] [address] Jaquan Egan Cholesterol in HDL [Mass/Vol] 68 mg/dL Critically high 40-60 [facility] Comment on above: Performed By: #### L IPID, CMP, TSH #### [facility] [address] [address] [address] Jaquan Egan Cholesterol in LDL [Mass/Vol] 105.8 mg/dL Normal [facility] Comment on above: Performed By: #### L IPID, CMP, TSH #### [facility] [address] [address] [address] Jaquan Egan Cholesterol.total/Ch olesterol in HDL [Mass ratio] 2.7 {ratio} Normal [facility] Comment on above: Performed By: #### L IPID, CMP, TSH #### [facility] [address] [address] [address] Jaquan Egan HDL NORMAL > or = 60 mg/dl - LO W CARDIOVASCULAR RISK <40 mg/dl - HIGH CARDIOVASCULAR RISK Normal [facility] Comment on above: Performed By: #### L IPID, CMP, TSH #### [facility] [address] [address] [address] Jaquan Egan LDL CALC NORMAL SEE BELOW Normal [facility] Comment on above: Result Comment: <100 mg/dl OPTIMAL 100 - 129 mg/dl NEAR OR ABOVE OPTIMAL 130 - 159 mg/dl BORDERLINE HIGH 160 - 189 mg/dl HIGH >190 mg/dl VERY HIGH Performed By: #### L IPID, CMP, TSH #### [facility] [address] [address] [address] Jaquan Egan Triglyceride [Mass/Vol] 41 mg/dL Normal <=150 [facility] Comment on above: Performed By: #### L IPID, CMP, TSH #### [facility] [address] [address] [address] Jaquan Egan VLDL CALC 8.2 mg/dL Normal [facility] Comment on above: Performed By: #### L IPID, CMP, TSH #### [facility] [address] [address] [address] Jaquan Egan PROF 14(COMP METB)on 05-15- 022 Albumin [Mass/Vol] 3.7 g/dL Normal 3.4-5.0 [facility] Comment on above: Performed By: #### L IPID, CMP, TSH #### [facility] [address] [address] [address] Jaquan Egan Albumin/Globulin [Mass ratio] 0.9 {ratio} Normal [facility] Comment on above: Performed By: #### L IPID, CMP, TSH #### [facility] [address] [address] [address] Jaquan Egan ALP [Catalytic activity/Vol] 85 U/L Normal 46-116 [facility] Comment on above: Performed By: #### L IPID, CMP, TSH #### [facility] [address] [address] [address] Jaquan Egan ALT [Catalytic activity/Vol] 18 U/L Normal 14-59 [facility] Comment on above: Performed By: #### L IPID, CMP, TSH #### [facility] [address] [address] [address] Jaquan Egan Anion gap [Moles/Vol] 9.8 mmol/L Normal [facility] Comment on above: Performed By: #### L IPID, CMP, TSH #### [facility] [address] [address] [address] Jaquan Egan AST [Catalytic activity/Vol] 13 U/L Critically low 15-37 [facility] Comment on above: Performed By: #### L IPID, CMP, TSH #### [facility] [address] [address] [address] Jaquan Egan Bilirubin [Mass/Vol] 0.3 mg/dL Normal 0.2-1.0 [facility] Comment on above: Performed By: #### L IPID, CMP, TSH #### [facility] [address] [address] [address] Jaquan Egan Calcium [Mass/Vol] 8.8 mg/dL Normal 8.5-10.1 [facility] Comment on above: Performed By: #### L IPID, CMP, TSH #### [facility] [address] [address] [address] Jaquan Egan Chloride [Moles/Vol] 104 mmol/L Normal 98-107 [facility] Comment on above: Performed By: #### L IPID, CMP, TSH #### [facility] [address] [address] [address] Jaquan Egan CO2 [Moles/Vol] 26.0 mmol/L Normal 21.0-32.0 [facility] Comment on above: Performed By: #### L IPID, CMP, TSH #### [facility] [address] [address] [address] Jaquan Egan Creatinine [Mass/Vol] 0.78 mg/dL Normal 0.55-1.02 [facility] Comment on above: Performed By: #### L IPID, CMP, TSH #### [facility] [address] [address] [address] Jaquan Egan EGFR-AF MAURITIAN >60 Normal >=60 [facility] Comment on above: Performed By: #### L IPID, CMP, TSH #### [facility] [address] [address] [address] Jaquan Egan EGFR-NON AF MAURITIAN >60 Normal >=60 [facility] Comment on above: Performed By: #### L IPID, CMP, TSH #### [facility] [address] [place] [address] Dr. Jaquan Egan Globulin (S) [Mass/Vol] 4.0 g/dL Normal [facility] Comment on above: Performed By: #### L IPID, CMP, TSH #### [facility] [address] [address] [address] Jaquan Egan Glucose [Mass/Vol] 100 mg/dL Normal 74-106 [facility] Comment on above: Performed By: #### L IPID, CMP, TSH #### [facility] [address] [place] [address] Dr. Jaquan Egan Potassium [Moles/Vol] 3.8 mmol/L Normal 3.5-5.1 [facility] Comment on above: Performed By: #### L IPID, CMP, TSH #### [facility] [address] [place] [address] Dr. Jaquan Egan Protein [Mass/Vol] 7.7 g/dL Normal 6.4-8.2 [facility] Comment on above: Performed By: #### L IPID, CMP, TSH #### [facility] [address] [place] [address] Dr. Jaquan Egan Sodium [Moles/Vol] 136 mmol/L Normal 136-145 [facility] Comment on above: Performed By: #### L IPID, CMP, TSH #### [facility] [address] [place] [address] Dr. Jaquan Egan Urea nitrogen [Mass/Vol] 12.0 mg/dL Normal 7.0-18.0 [facility] Comment on above: Performed By: #### L IPID, CMP, TSH #### [facility] [address] [place] [address] Dr. Jaquan Egan Urea nitrogen/Creatinine [Mass ratio] 15.4 mg/mg [facility] Comment on above: Performed By: #### L KB ESPINOZA, TSH #### [facility] [address] [place], [place] [address] Dr. Jaquan Egan TSHon 05-15-2022 TSH 2.187 uIU/mL Normal 0.358-3.740 [facility] Comment on above: Performed By: #### L KB ESPINOZA, TSH #### [facility] [address] [id number] Jaquan Egan US PELVIS AND TRANSVAGon [...] by: EMY MORTON Date: 2021-11-08 10:51 Normal [facility] PAP ACOG PANEL 2: 30 to 65on 11-07-2021 . . Normal [facility] Comment on above: Result Comment: Perf ormed at: WB Performed By: #### 4 [id number] #### [facility] [address] [place] [address] Dr. Jaquan Egan Age Gdln ACOG Testing 30-65 [facility] Comment on above: Performed By: #### [id number] #### [facility] [address] [address] [address] Jaquan Egan DIAGNOSIS: Comment Normal [facility] Comment on above: Result Comment: NEGA TIVE FOR INTRAEPITHELIAL LESION OR MALIGNANCY. Performed at: WB Performed By: #### [id number] #### [facility] [address] [place] [address] Dr. Jaquan Egan HPV Aptima Negative Normal Negative [facility] Comment on above: Result Comment: This nucleic acid amplification test detects fourteen high-risk HPV types (16,18,31,33,35,39,45,51,52,56,58,59,66,68) without differentiation. Performed at: =G Performed By: #### [id number] #### [facility] [address] [place] [address] Dr. Jaquan Egan Methodology: Comment Normal [facility] Comment on above: Result Comment: This liquid based ThinPrep(R) pap test was screened with the use of an image guided system. Performed at: WB Performed By: #### [id number] #### [facility] [address] [place] [address] Dr. Jaquan Egan Note: Comment Normal [facility] Comment on above: Result Comment: The Pap smear is a screening test designed to aid in the detection of premalignant and malignant conditions of the uterine cervix. It is not a diagnostic procedure and should not be used as the sole means of detecting cervical cancer. Both false-positive and false-negative reports do occur. . Performed at: WB Performed By: #### [id number] #### [facility] [address] [place] [address] Dr. Jaquan Egan Performed by: Comment Normal [facility] Comment on above: Result Comment: Guevara Carlos Traffic Signal Supervisor Maintenance (ASCP) Performed at: WB Performed By: #### [id number] #### [facility] [address] [place] [address] Dr. Jaquan Egan Specimen adequacy: Comment Normal [facility] Comment on above: Result Comment: Sati sfactory for evaluation. No endocervical component is identified. Performed at: WB Performed By: #### [id number] #### [facility] [address] [place] [address] Dr. Jaquan Egan Encounters Encounter Date Encounter Type Care Provider Facility Start: 04-28-2024 End: 04-28-2024 Bamboo flowsheet Cele A Felter [employer] CLERK Work Phone: [facility] Start: 04-28-2024 End: 04-28-2024 Bamboo flowsheet Cele A Felter [employer] DEPOSIT CLERK Work Phone: [facility] Start: 04-28-2024 End: 04-28-2024 Patient encounter procedure Cele Helton Felter [employer] DEPOSIT CLERK Work Phone: [facility] Comment on above: Neoplasm of unspecif ied behavior of bone, soft tissue, and skin Start: 04-28-2024 End: 04-28-2024 ambulatory CELE A FELTER Not Available Start: 09-02-2023 Clinisync Result Encounter Lalitha Nichelle DO Work Phone: [facility] Unsolicited Start: 09-02-2023 External Result Encounter Lalitha Nichelle DO Work Phone: [facility] Unsolicited Start: 09-02-2023 External Result Encounter Lalitha Nichelle DO Work Phone: [facility] Unsolicited Start: 09-02-2023 End: 09-02-2023 ambulatory LALITHA NICHELLE Not Available Start: 08-29-2022 End: 08-29-2022 ambulatory CAROLYN HOPKINS Facility:[facility] Start: 05-18-2022 Encounter for genera l adult medical examination without abnormal findings GLORIA [facility] Start: 05-15-2022 End: 05-16-2022 ambulatory GLORIA SHAMND Facility:[facility] Start: 05-15-2022 End: 05-16-2022 Encounter for general adult medical examination without abnormal findings GLORIA HUFF Facility:[facility] Start: 11-08-2021 End: 11-09-[address] KOFFI GALLARDO Facility:[facility] Start: 10-31-2021 End: 10-31-[address] KOFFI GALLARDO Facility:[facility] Start: 02-20-2021 End: 02-24-2021 ambulatory [facility] Procedures Date Procedure Procedure Detail Performing Clinician Start: 04-28-2024 SKIN / NAIL BIOPSY Alaina lie A Felter [employer]POSIT CLERK Work Phone: Start: 09-02-2023 URETHRITIS/DISCHARGE PLUS VAGINITIS (HTRX) Lalitha Steward DO Work Phone: Start: 09-02-2023 IGP,APTIMA HPV,AGE GDLN Lalitha Steward DO Work Phone: Plan of Treatment Date Care Activity Detail Author Start: 09-03-2024 End: 09-03-2024 Patient encounter procedure 09/03/2024 8:30 AM EST Office Visit [facility] [address] [place] [address] Lalitha Steward, DO [address] [place], [place] [id number] [facility] Start: 04-28-2024 End: 04-28-2024 Patient encounter procedure 04/28/2024 8:30 AM EDT Office Visit [facility] [address] [place] [address] Cele Oneal, [employer] DEPOSIT CLERK [address] [place] [address] Arrived [facility] Comment on above: Arrived Dermatopathology exam Dermatopat hology exam Pathology and Cytology Timed Neoplasm of unspecified behavior of bone, soft tissue, and skin Release Upon Ordering for 1 Occurrences starting 04/28/2024 [facility] Work Phone: Comment on above: Release Upon Ordering for 1 Occurrences starting 04/28/2024 Payers Date Payer Category Payer Medicaid [facility] [employer] MEDICAID [place] [id number] 2023-Present [address] [place] [address] [id number] 1984 Unknown [id number] 1984 Unknown [id number] 1984 Unknown [id number] 1984 Unknown [id number] 1984 Unknown [id number] 1984 Unknown [id number] 1984 Unknown [id number] 1959 Unknown [id number] Social History Date Type Detail Facility Start: 08-12-2023 Tobacco smoking stat [facility] Never smoked tobacco [facility] Start: 09-02-2023 Alcohol intake Lifetime non-d eladio (finding) [facility] Start: 09-02-2023 End: 04-28-2024 History of Social function [facility] Start: 09-02-2023 End: 04-28-2024 Tobacco use panel [facility] Start: 1985 Sex Assigned At Female [facility] Start: 09-02-2023 Gender identity Identifies as female gender (finding) [facility] Start: 09-02-2023 Sexual orientation Bisexual (finding ) [facility] Start: 04-28-2024 Alcoholic beverage intake Curr ent drinker of alcohol (finding) [facility] History of Present illness Narrative 04-28-2024 Cele Oneal, [employer] DEPOSIT CLERK - 04/28/2024 8:30 AM EDT Note Date & Type Note Facility 04-28-2024 History of Presen t illness Narrative Images from the original note were not included. Follow up Diagnosis: Dermatofibroma Location: Right leg Last visit: 06/05/2022 Modifying factors: Shaves over lesion in shower, causes irritation Symptoms: Itchy Current treatment: Would like removed today All pertinent medical history, medications, and allergies were reviewed. General Exam: alert , oriented to person, place, and time , normal affect, well appearing A focused exam completed based on patient reported problems, see below: 1. Neoplasm of unspecified behavior of bone, soft tissue, and skin Right Lower Leg - Anterior Firm brown papule Lesion biopsy Type of biopsy: tangential Informed consent: discussed and consent obtained Informed consent comment: The risks and benefits of the biopsy were discussed. Risks include but are not limited to bleeding, infection, scarring, pain, and nerve damage. An opportunity to ask questions prior to the procedure was permitted and all questions were answered. Patient was prepped and draped in usual sterile fashion: area cleansed with alcohol. Anesthesia: the lesion was anesthetized in a standard fashion Anesthetic: 1% lidocaine w/ epinephrine 1-100,000 buffered w/ 8.4% NaHCO3 Instrument used: DermaBlade Hemostasis achieved with: electrodesiccation Outcome: patient tolerated procedure well Outcome comment: The specimen was placed in a prelabeled formalin container to be sent for pathology Post-procedure details: sterile dressing applied and wound care instructions given Post-procedure details comment: Emphasized need to contact clinic for any signs of infection, uncontrollable bleeding, or complications. Dressing type: bandage Additional details: Photo taken Amount of lidocaine used: 1.0 cc Specimen A - Dermatopathology exam Differential Diagnosis: DF Check Margins: No Size of lesion: 1.2 x 1.2 cm Next Visit: prn for any new/changing lesions documented in this encounter [facility] Evaluation note Note Date & Type Note Facility Evaluation note Diagnosis Neoplasm of unspecified behavior of bone, soft tissue, and skin documented in this encounter [facility] Summary Purpose Family History No Family History Records FoundNo Family History Records FoundNo Family History Records Found Advance Directives No Advanced Directives Records FoundNo Advanced Directives Records FoundNo Advanced Directives Records Found Additional Source Comments INFORMATION SOURCE (unrecogn ized section and content) DATE CREATED AUTHOR 02/25/2021 [facility] DATE CREATED AUTHOR AUTHOR'S ORGANIZ ATION 09/04/2022 [facility] DATE CREATED AUTHOR AUTHOR'S ORGANIZ ATION 04/29/2024 [facility] FOR RECORDS PERTAINING TO PATIENTS WHO ARE [...] BE BASED ON THE PRIMARY CLINICAL RECORDS. [facility]. provides no warranty or guarantee of the accuracy or completeness of information in this document.
--- NOTE | 2024-09-25 19:25 | PC.NURSE ---
this patient drove herself to the er dept with complaints of neck and upper back pain, shocks down her left arm and left hand, onset for a couple weeks this patient does says she did go to her pcp for this pain. this patient deneis any any recent falls, or trauma to cause this pain in her neck(posterior) or upper back
--- NOTE | 2024-09-25 19:30 | PC.NURSE ---
per radiology nurse this patient would not remain still in order to take the x-rays. i will inform er dr of this situation
--- NOTE | 2024-09-25 19:39 | ECG_ITS ---
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
[2024-09-25] MEDS: METHYLPREDNISOLONE SOD SUCC PF 40 MG/ML VIAL IM (19:51)
[2024-09-25] MEDS: ORPHENADRINE 60 MG/ 2 ML VIAL IM (19:52)
[2024-09-25] MEDS: KETOROLAC TROMETHAMINE 30 MG/ML VIAL IM (19:52)
--- NOTE | 2024-09-25 20:15 | ED_ITS ---
HPI HPI - Neck Pain/Injury General Chief Complaint: Neck Pain/Injury Stated Complaint: NECK PAIN Time Seen by Provider: 09/25/24 19:10 Source: patient Mode of arrival: walk-in History of Present Illness HPI Narrative: The patient 38-year-old female is coming today with a neck pain that started a few days ago, patient mentioned that there was no trigger of fall or any trauma but she already had a history of neck pain before but it got worse after she got to the chiropractor , the patient mentioned that the pain radiate down her left arm going to her left hand She already had a left hand pain and wrist pain and she is told that she have carpal tunnel, Related Data Allergies Allergy/AdvReac Type Severity Reaction Status Date / Time No Known Drug Allergies Allergy Verified 09/25/24 17:54 Opioid HPI Opioid Management Most Recent Opioid Data: Last Pain Scale 10 09/25/24 19:22 09/25/24 Review of Systems ROS Status of ROS 10 or more systems reviewed and unremark able except as noted in history and below Exam Narrative Exam Narrative: Nurses notes and vital signs reviewed and patient is not hypoxic. General: Well-appearing and in no apparent distress. Skin: Warm, dry, no pallor noted. No rash. Head: Normocephalic, atraumatic. Neck: The patient have paraspinal muscle tenderness as well as intervertebral line tenderness at the upper thoracic level and the lower cervical level. No ecchymosis Eye: Pupils are equal, round and EOMI. No scleral icterus. Ears, Nose, Mouth, and Throat: TM are clear, no nasal mucosal hypertrophy. Oral mucosa is moist, no posterior oropharynx erythema, uvula is mid-line Cardiovascular: Regular Rate and Rhythm without murmur, gallop or rub. Respiratory: No accessory muscle use or respiratory distress. Lungs are clear to auscultation, no wheezing, rales or rhonchi Chest Wall: no tenderness Back: No midline thoracic or lumbar vertebral tenderness. No CVA tenderness Musculoskeletal: normal ROM, no calf or popliteal tenderness, no lower extremity edema/swelling GI: Abdomen is soft, non-distended. Normal bowel sounds. No masses appreciated. Constitutional Vital Signs, click to edit/add: Last Vital Signs Temp 98.7 F 09/25/24 17:48 Pulse 103 H 09/25/24 20:18 Resp 19 09/25/24 20:18 BP 155/113 H 09/25/24 20:18 Pulse Ox 100 09/25/24 20:18 O2 Del Method Room Air 09/25/24 17:48 Course Vital Signs Vital signs: Vital Signs Temperature 98.7 F 09/25/24 17:48 Pulse Rate 110 H 09/25/24 17:48 Respiratory Rate 22 H 09/25/24 17:48 Blood Pressure 142/84 H 09/25/24 17:48 Pulse Oximetry 99 09/25/24 17:48 Oxygen Delivery Method Room Air 09/25/24 17:48 Temperature 98.7 F 09/25/24 17:48 Pulse Rate 103 H 09/25/24 20:18 Respiratory Rate 19 09/25/24 20:18 Blood Pressure 155/113 H 09/25/24 20:18 Pulse Oximetry 100 09/25/24 20:18 Oxygen Delivery Method Room Air 09/25/24 17:48 MDM - Neck Pain/Injury MDM Narrative Medical decision making narrative: The patient EKG was showing sinus rhythm with a heart rate of [address] elevation or depression The patient pain is not cardiac in origin it is mostly secondary to neck pain but the EKG was obtained because the patient tachycardia initially The patient CT of the cervical spine And she was provided with Toradol and steroid in addition to Norflex She requested further pain medication and as she did not have a ride home the patient just signed herself AMA as she was complaining of more pain after she was provided Toradol and I did prescribe her Percocet 1 tablet but she wanted to take that to go home and will be explained to her that she have to take it in the ER the patient signed herself AMA CT of the cervical spine showed no acute pathology Discharge Plan Discharge Stand Alone Forms: Portal Instructions Chief Complaint: Neck Pain/Injury Clinical Impression: Strain of neck muscle Patient Disposition: Left Against Medical Advice Time of Disposition Decision: 22:14 Print Language: Macedonian Referrals: Sam Bruce NP [Primary Care Provider] - 1 week Discharge Date/Time: 09/25/24 22:21
[2024-09-25 20:18] VITALS: BP 155/113; PULSE 103; O2SAT 100
--- NOTE | 2024-09-25 20:20 | PC.NURSE ---
this patient is still unable to sit still for the EKG and x-rays. I informed this patient when she able to sit still hit the call light so we can continue with you plan of care
--- NOTE | 2024-09-25 21:44 | PC.NURSE ---
this patient awake and alert sitting upright and still on the bed, this patient voices her pain is at 7/10 now i informed her that still waiting on x-ray results to come back. this patient voices no concerns and show no signs of distress
--- NOTE | 2024-09-25 22:14 | PC.NURSE ---
this patient was offered pain medication but told her that she will need a ride home since she drove her self to the er dept. this patient said I cant not find a ride home, my grandmother live in [place] is in bed. i have friends in [place] but they will not come to take me home. I told patient since your are in so much pain take this pain medication and when you are discharge just waiting in the er lobby until you can drive home. this patient said I do not want to wait that long, I just want to leave this patient did sign the AMA form, and I told this patient if you can get a ride home please come back. this patient walked out of room number 10, and this patient gait steady and no visible signs of distress
== END 2024-09-25 22:21 | disposition left against medical advice (07) ==
PROVIDERS: Emergency Provider Emergency Medicine; PCP Nurse Practitioner Primary Care
DX: S16.1XXA Strain of muscle, fascia and tendon at neck level, initial encounter (principal); Z53.29 Procedure and treatment not carried out because of patient's decision for other reasons; X58.XXXA Exposure to other specified factors, initial encounter
CPT/HCPCS: 72125; 93005; 96372; 99284; J1885; J2360; J2919

== ENCOUNTER 2024-09-28 13:33 | Outpatient (OUT) | payer MEDICAID, SELFPAY ==
--- OUTSIDE RECORDS SUMMARY | 2024-09-28 13:55 | XMS_ITS | CCD ---
Author Organization [facility] Care Team Providers Care Ship'S Engineer Name Role Phone AKUA SELLERS Primary Care [...] Active Start: 06-26-2023 take 1 capsule by [facility] once daily at mealtime venlafaxine XR [...] taken Amount of lidocaine used: 1.0 cc [facility] IGP,APTIMA HPV,AGE GDLNon AGE GDLN ACOG TESTING Note . [facility] Comment on above: TESTS RESULT FLAG UN ITS REF RANGE LAB Clinician Provided Cytology Information Source.............Vagina No. of containers..01 ThinPrep Vial Age Algo ACOG Nataly... FLAG LEGEND: L-Low Normal,H-High Normal,LL-Alert Low,HH-Alert High <-Panic Low,>-Panic High,A-Abnormal,AA-Critical Abnormal Performed at: 01 =G [facility] [address] [place] [address] Yaima Gould MD, HPV APTIMA Negative Negative [facility] Comment on above: This nucleic acid am plification test detects fourteen high- risk HPV types (16,18,31,33,35,39,45,51,52,56,58,59,66,68) without differentiation. Performed at: =G [address], [place] [id number] Paint Technician: Yaima Gould MD, Phone: [phone] Performed at: - [address] [id number] Paint Technician: Yaima Gould MD, Phone: [phone] IGP, APTIMA HPV, RFX 16/18,45 Note . [facility] Comment on above: TESTS RESULT FLAG UN ITS REF RANGE LAB DIAGNOSIS: 02 NEGATIVE FOR INTRAEPITHELIAL LESION OR MALIGNANCY. Specimen adequacy: 02 Satisfactory for evaluation. Performed by: Irish Melendez, Drum Tester ([facility]) . 02 Note: Note 02 The Pap [...] High <-Panic Low,>-Panic High,A-Abnormal,AA-Critical Abnormal Performed at: [facility] [address] [place] [address] Yaima Gould MD, SPATULA-ALONE VAGINA [facility] URETHRITIS/DISCHARGE PLUS VA GINITIS (HTRX)on 09-04-2023 ATOPOBIUM VAGINAE 0 [facility] ATOPOBIUM VAGINAE Not detected [facility] BVAB 2,3 (BACTERIAL VAGINOSIS ASSOCIATED BACTERIA 2, 3); MOBILUNCUS SPP 0 [facility] BVAB 2,3 (BACTERIAL VAGINOSIS ASSOCIATED BACTERIA 2, 3); MOBILUNCUS SPP Not detected [facility] TERRANCE ALBICANS, PARAPSILOSIS, TROPICALIS 0 [facility] TERRANCE ALBICANS, PARAPSILOSIS, TROPICALIS Not detected [facility] TERRANCE GLABRATA 0 [facility] TERRANCE GLABRATA Not detected [facility] TERRANCE KRUSEI 0 [facility] TERRANCE KRUSEI Not detected [facility] CHLAMYDIA TRACHOMATIS 0 [facility] CHLAMYDIA TRACHOMATIS Not detected [facility] Healthcare GARDNERELLA VAGINALIS 0 [facility] GARDNERELLA VAGINALIS Not detected [facility] MEGASPHAERA (TYPES 1, 2) 0 [facility] Healthcare MEGASPHAERA (TYPES 1, 2) Not detected [facility] MYCOPLASMA GENITALIUM 0 [facility] MYCOPLASMA GENITALIUM Not detected [facility] NEISSERIA GONORRHOEAE 0 [facility] Healthcare NEISSERIA GONORRHOEAE Not detected [facility] TRICHOMONAS VAGINALIS 0 [facility] TRICHOMONAS VAGINALIS Not detected [facility] Healthcare PAP ACOG PANEL 2: 30 to 65on 09-04-2022 . . Normal [facility] Comment on above: Result Comment: Perf ormed at: WB Performed By: #### [id number] #### [facility] [address] [address] [address] Jaquan Egan Age Gdln ACOG Testing 30-65 Normal [facility] Comment on above: Performed By: #### [id number] #### [facility] [address] [address] [address] Jaquan Egan DIAGNOSIS: Comment Normal [facility] Comment on above: Result Comment: NEGA TIVE FOR INTRAEPITHELIAL LESION OR MALIGNANCY. Performed at: WB Performed By: #### [id number] #### [facility] [address] [address] [address] Jaquan Egan HPV Aptima Negative Normal Negative [facility] Comment on above: Result Comment: This nucleic acid amplification test detects fourteen high-risk HPV types (16,18,31,33,35,39,45,51,52,56,58,59,66,68) without differentiation. Performed at: =G Performed By: #### [id number] #### [facility] [address] [place] [address] Dr. Jaquan Egan HPV Genotype Reflex Comment Normal [facility] Comment on above: Result Comment: Crit eria not met, HPV Genotype not performed. Performed at: WB Performed By: #### [id number] #### [facility] [address] [place] [address] Dr. Jaquan Egan Methodology: Comment Normal [facility] Comment on above: Result Comment: This liquid based ThinPrep(R) pap test was screened with the use of an image guided system. Performed at: WB Performed By: #### [id number] #### [facility] [address] [place] [address] Dr. Jaquan Egan Note: Comment Normal [facility] Comment on above: Result Comment: The Pap smear is a screening test designed to aid in the detection of premalignant and malignant conditions of the uterine cervix. It is not a diagnostic procedure and should not be used as the sole means of detecting cervical cancer. Both false-positive and false-negative reports do occur. . Performed at: WB Performed By: #### [id number] #### [facility] [address] [place] [address] Dr. Jaquan Egan Performed by: Comment Normal [facility] Comment on above: Result Comment: Duc Lewis, Drum Tester (ASCP) Performed at: WB Performed By: #### [id number] #### [facility] [address] [place] [address] Dr. Jaquan Egan Specimen adequacy: Comment Normal [facility] Comment on above: Result Comment: Sati sfactory for evaluation. No endocervical component is identified. Performed at: WB Performed By: #### 4 [id number] #### [facility] [address] [place] [address] Dr. Jaquan Egan CBC AUTO DIFFon 05-15-2022 BASO # 0.1 103/ul Normal 0.0-0.1 [facility] Comment on above: Performed By: #### C BC #### [facility] [address] [place] [address] Dr. Jaquan Egan Basophils/100 WBC (Bld) 0.8 % Normal 0.2-2.0 [facility] Comment on above: Performed By: #### C BC #### [facility] [address] [place] [address] Dr. Jaquan Egan EO # 0.1 103/ul Normal 0.0-0.7 [facility] Comment on above: Performed By: #### C BC #### [facility] [address] [place] [address] Dr. Jaquan Egan Eosinophils/100 WBC (Bld) 1.6 % Normal 0.9-7.0 [facility] Comment on above: Performed By: #### C BC #### [facility] [address] [place] [address] Dr. Jaquan Egan Erythrocyte distribution width (RBC) [Ratio] 12.8 % Normal 11.0-15.0 [facility] Comment on above: Performed By: #### C BC #### [facility] [address] [place] [address] Dr. Jaquan Egan Hematocrit (Bld) [Volume fraction] 41.5 % Normal 36.0-48.0 [facility] Comment on above: Performed By: #### C BC #### [facility] [address] [place] [address] Dr. Jaquan Egan Hemoglobin (Bld) [Mass/Vol] 13.0 g/dL Normal 12.0-16.0 [facility] Comment on above: Performed By: #### C BC #### [facility] [address] [place] [address] Dr. Jaquan Egan IG # 0.02 10e3/ul Normal 0.00-0.03 [facility] Comment on above: Performed By: #### C BC #### [facility] [address] [place] [address] Dr. Jaquan Egan IG % 0.3 % Normal 0.0-0.5 [facility] Comment on above: Performed By: #### C BC #### [facility] [address] [place] [address] Dr. Jaquan Egan LYMPH # 1.7 103/ul Normal 1.2-3.8 [facility] Comment on above: Performed By: #### C BC #### [facility] [address] [place] [address] Dr. Jaquan Egan Lymphocytes/100 WBC (Bld) 22.2 % Normal 20.5-60.0 [facility] Comment on above: Performed By: #### C BC #### [facility] [address] [place] [address] Dr. Jaquan Egan MANUAL DIFF REQ NO Normal [facility] Comment on above: Performed By: #### C BC #### [facility] [address] [place] [address] Dr. Jaquan Egan MCH (RBC) [Entitic mass] 26.5 pg Critically low 26.7-34.0 [facility] Comment on above: Performed By: #### C BC #### [facility] [address] [place] [address] Dr. Jaquan Egan MCHC (RBC) [Mass/Vol] 31.3 g/dL Normal 29.9-35.2 [facility] Comment on above: Performed By: #### C BC #### [facility] [address] [place] [address] Dr. Jaquan Egan MCV (RBC) [Entitic vol] 84.7 fL Normal 81.0-99.0 [facility] Comment on above: Performed By: #### C BC #### [facility] [address] [place] [address] Dr. Jaquan Egan MONO # 0.5 103/ul Normal 0.3-0.8 [facility] Comment on above: Performed By: #### C BC #### [facility] [address] [place] [address] Dr. Jaquan Egan Monocytes/100 WBC (Bld) 6.8 % Normal 1.7-12.0 [facility] Comment on above: Performed By: #### C BC #### [facility] [address] [address] [address] Jaquan Egan NEUT # 5.1 103/ul Normal 1.4-6.5 [facility] Comment on above: Performed By: #### C BC #### [facility] [address] [address] [address] Jaquan Egan Neutrophils/100 WBC (Bld) 68.3 % Normal 43.0-75.0 [facility] Comment on above: Performed By: #### C BC #### [facility] [address] [address] [address] Jaquan Egan Platelet mean volume (Bld) [Entitic vol] 10.0 fL Normal 9.5-13.5 [facility] Comment on above: Performed By: #### C BC #### [facility] [address] [place] [address] Dr. Jaquan Egan PLT 361 103/ul Normal 150-450 [facility] Comment on above: Performed By: #### C BC #### [facility] [address] [place] [address] Dr. Jaquan Egan RBC 4.90 106/ul Normal 4.20-5.40 [facility] Comment on above: Performed By: #### C BC #### [facility] [address] [place] [address] Dr. Jaquan Egan WBC 7.5 103/ul Normal 4.0-11.0 [facility] Comment on above: Performed By: #### C BC #### [facility] [address] [place] [address] Dr. Jaquan Egan GLYCOHEMOGLOBIN A1Con 2021 ADA RECOMMENDATION SEE BELOW Normal [facility] Comment on above: Result Comment: ADA RECOMMENDED LIMIT 4.0 - 6.0 ADA THERAPEUTIC TARGET < 7.0 ACTION SUGGESTED > 7.0 Performed By: #### A 1C #### [facility] [address] [place] [address] Dr. Jaquan Egan Glucose [Mass/Vol] 111 mg/dL Normal [facility] Comment on above: Performed By: #### A 1C #### [facility] [address] [address] [address] Jaquan Egan HbA1c (Bld) [Mass fraction] 5.5 % Normal 4.5-6.2 [facility] Comment on above: Performed By: #### A 1C #### [facility] [address] [address] [address] Jaquan Egan LIPID PROFILEon 05-15-2022 CHOL-HDL RATIO NORM SEE BELOW Normal [facility] Comment on above: Result Comment: 3.3 - 4.4 LOW RISK 4.4 - 7.1 AVERAGE RISK 7.1 - 11.0 MODERATE RISK >11.0 HIGH RISK Performed By: #### L IPID, CMP, TSH #### [facility] [address] [address] [address] Jaquan Egan Cholesterol [Mass/Vol] 182 mg/dL Normal <=200 [facility] Comment on above: Performed By: #### L IPID, CMP, TSH #### [facility] [address] [address] [address] Jaquan Egan Cholesterol in HDL [Mass/Vol] 68 mg/dL Critically high 40-60 [facility] Comment on above: Performed By: #### L IPID, CMP, TSH #### [facility] [address] [address] [address] Jaquan Egan Cholesterol in LDL [Mass/Vol] 105.8 mg/dL Normal [facility] Comment on above: Performed By: #### L IPID, CMP, TSH #### [facility] [address] [address] [address] Jaquan Egan Cholesterol.total/Ch olesterol in HDL [Mass ratio] 2.7 {ratio} Normal [facility] Comment on above: Performed By: #### L IPID, CMP, TSH #### [facility] [address] [address] [address] Jaquan Egan HDL NORMAL > or = 60 mg/dl - LO W CARDIOVASCULAR RISK <40 mg/dl - HIGH CARDIOVASCULAR RISK Normal [facility] Comment on above: Performed By: #### L IPID, CMP, TSH #### [facility] [address] [address] [address] Jaquan Egan LDL CALC NORMAL SEE BELOW Normal [facility] Comment on above: Result Comment: <100 mg/dl OPTIMAL 100 - 129 mg/dl NEAR OR ABOVE OPTIMAL 130 - 159 mg/dl BORDERLINE HIGH 160 - 189 mg/dl HIGH >190 mg/dl VERY HIGH Performed By: #### L IPID, CMP, TSH #### [facility] [address] [address] [address] Jaquan Egan Triglyceride [Mass/Vol] 41 mg/dL Normal <=150 [facility] Comment on above: Performed By: #### L IPID, CMP, TSH #### [facility] [address] [address] [address] Jaquan Egan VLDL CALC 8.2 mg/dL Normal [facility] Comment on above: Performed By: #### L IPID, CMP, TSH #### [facility] [address] [address] [address] Jaquan Egan PROF 14(COMP METB)on 05-15- 022 Albumin [Mass/Vol] 3.7 g/dL Normal 3.4-5.0 [facility] Comment on above: Performed By: #### L IPID, CMP, TSH #### [facility] [address] [address] [address] Jaquan Egan Albumin/Globulin [Mass ratio] 0.9 {ratio} Normal [facility] Comment on above: Performed By: #### L IPID, CMP, TSH #### [facility] [address] [address] [address] Jaquan Egan ALP [Catalytic activity/Vol] 85 U/L Normal 46-116 [facility] Comment on above: Performed By: #### L IPID, CMP, TSH #### [facility] [address] [address] [address] Jaquan Egan ALT [Catalytic activity/Vol] 18 U/L Normal 14-59 [facility] Comment on above: Performed By: #### L IPID, CMP, TSH #### [facility] [address] [address] [address] Jaquan Egan Anion gap [Moles/Vol] 9.8 mmol/L Normal [facility] Comment on above: Performed By: #### L IPID, CMP, TSH #### [facility] [address] [address] [address] Jaquan Egan AST [Catalytic activity/Vol] 13 U/L Critically low 15-37 [facility] Comment on above: Performed By: #### L IPID, CMP, TSH #### [facility] [address] [address] [address] Jaquan Egan Bilirubin [Mass/Vol] 0.3 mg/dL Normal 0.2-1.0 [facility] Comment on above: Performed By: #### L IPID, CMP, TSH #### [facility] [address] [address] [address] Jaquan Egan Calcium [Mass/Vol] 8.8 mg/dL Normal 8.5-10.1 [facility] Comment on above: Performed By: #### L IPID, CMP, TSH #### [facility] [address] [address] [address] Jaquan Egan Chloride [Moles/Vol] 104 mmol/L Normal 98-107 [facility] Comment on above: Performed By: #### L IPID, CMP, TSH #### [facility] [address] [address] [address] Jaquan Egan CO2 [Moles/Vol] 26.0 mmol/L Normal 21.0-32.0 [facility] Comment on above: Performed By: #### L IPID, CMP, TSH #### [facility] [address] [address] [address] Jaquan Egan Creatinine [Mass/Vol] 0.78 mg/dL Normal 0.55-1.02 [facility] Comment on above: Performed By: #### L IPID, CMP, TSH #### [facility] [address] [address] [address] Jaquan Egan EGFR-AF CITIZEN [place] >60 Normal >=60 [facility] Comment on above: Performed By: #### L IPID, CMP, TSH #### [facility] [address] [address] [address] Jaquan Egan EGFR-NON AF CITIZEN OF [place] >60 Normal >=60 [facility] Comment on above: Performed By: #### L IPID, CMP, TSH #### [facility] [address] [place] [address] Dr. Jaquan Egan Globulin (S) [Mass/Vol] 4.0 g/dL Normal [facility] Comment on above: Performed By: #### L IPID, CMP, TSH #### [facility] [address] [address] [address] Jaquan Egan Glucose [Mass/Vol] 100 mg/dL Normal 74-106 [facility] Comment on above: Performed By: #### L IPID, CMP, TSH #### [facility] [address] [place] [address] Dr. Jaquan Egan Potassium [Moles/Vol] 3.8 mmol/L Normal 3.5-5.1 [facility] Comment on above: Performed By: #### L IPID, CMP, TSH #### [facility] [address] [place] [address] Dr. Jaquan Egan Protein [Mass/Vol] 7.7 g/dL Normal 6.4-8.2 [facility] Comment on above: Performed By: #### L IPID, CMP, TSH #### [facility] [address] [place] [address] Dr. Jaquan Egan Sodium [Moles/Vol] 136 mmol/L Normal 136-145 [facility] Comment on above: Performed By: #### L IPID, CMP, TSH #### [facility] [address] [place] [address] Dr. Jaquan Egan Urea nitrogen [Mass/Vol] 12.0 mg/dL Normal 7.0-18.0 [facility] Comment on above: Performed By: #### L IPID, CMP, TSH #### [facility] [address] [place] [address] Dr. Jaquan Egan Urea nitrogen/Creatinine [Mass ratio] 15.4 mg/mg [facility] Comment on above: Performed By: #### L KB ESPINOZA, TSH #### [facility] [address] [place], [place] [address] Dr. Jaquan Egan TSHon 05-15-2022 TSH 2.187 uIU/mL Normal 0.358-3.740 [facility] Comment on above: Performed By: #### L KB ESPINOZA, TSH #### [facility] [address] [id number] Jaquan Egan US PELVIS AND TRANSVAGon [...] by: EMY MORTON Date: 2021-11-08 10:51 Normal [facility] PAP ACOG PANEL 2: 30 to 65on 11-07-2021 . . Normal [facility] Comment on above: Result Comment: Perf ormed at: WB Performed By: #### 4 [id number] #### [facility] [address] [place] [address] Dr. Jaquan Egan Age Gdln ACOG Testing 30-65 [facility] Comment on above: Performed By: #### 4 [id number] #### [facility] [address] [address] [address] Jaquan Egan DIAGNOSIS: Comment Normal [facility] Comment on above: Result Comment: NEGA TIVE FOR INTRAEPITHELIAL LESION OR MALIGNANCY. Performed at: WB Performed By: #### 4 [id number] #### [facility] [address] [place] [address] Dr. Jaquan Egan HPV Aptima Negative Normal Negative [facility] Comment on above: Result Comment: This nucleic acid amplification test detects fourteen high-risk HPV types (16,18,31,33,35,39,45,51,52,56,58,59,66,68) without differentiation. Performed at: =G Performed By: #### 4 [id number] #### [facility] [address] [place] [address] Dr. Jaquan Egan Methodology: Comment Normal [facility] Comment on above: Result Comment: This liquid based ThinPrep(R) pap test was screened with the use of an image guided system. Performed at: WB Performed By: #### 4 [id number] #### [facility] [address] [place] [address] Dr. Jaquan Egan Note: Comment Normal [facility] Comment on above: Result Comment: The Pap smear is a screening test designed to aid in the detection of premalignant and malignant conditions of the uterine cervix. It is not a diagnostic procedure and should not be used as the sole means of detecting cervical cancer. Both false-positive and false-negative reports do occur. . Performed at: WB Performed By: #### 4 [id number] #### [facility] [address] [place] [address] Dr. Jaquan Egan Performed by: Comment Normal [facility] Comment on above: Result Comment: Guevara Carlos Drum Tester (ASCP) Performed at: WB Performed By: #### 4 [id number] #### [facility] [address] [place] [address] Dr. Jaquan Egan Specimen adequacy: Comment Normal [facility] Comment on above: Result Comment: Sati sfactory for evaluation. No endocervical component is identified. Performed at: WB Performed By: #### 4 [id number] #### [facility] [address] [place] [address] Dr. Jaquan Egan Encounters Encounter Date Encounter Type Care Provider Facility Start: 04-28-2024 End: 04-28-2024 Bamboo flowsheet Cele A Felter FOREIGN EXCHANGE STUDENT COORDINATOR-COMPANY DANCER Work Phone: [facility] Start: 04-28-2024 End: 04-28-2024 Bamboo flowsheet Cele A Felter FOREIGN EXCHANGE STUDENT COORDINATOR-COMPANY DANCER Work Phone: [facility] Start: 04-28-2024 End: 04-28-2024 Patient encounter procedure Cele Helton Felter FOREIGN EXCHANGE STUDENT COORDINATOR-COMPANY DANCER Work Phone: [facility] Comment on above: Neoplasm of unspecif ied behavior of bone, soft tissue, and skin Start: 04-28-2024 End: 04-28-2024 ambulatory CELE A FELTER Not Available Start: 09-02-2023 [facility] Result Encounter Lalitha Nichelle DO Work Phone: [facility] Unsolicited Start: 09-02-2023 External Result Encounter Lalitah Nichelle DO Work Phone: [facility] Unsolicited Start: 09-02-2023 External Result Encounter Lalitha Nichelle DO Work Phone: [facility] Unsolicited Start: 09-02-2023 End: 09-02-2023 ambulatory LALITHA NICHELLE Not Available Start: 08-29-2022 End: 08-29-2022 ambulatory CAROLYN HOPKINS Facility:[facility] Start: 05-18-2022 Encounter for genera l adult medical examination without abnormal findings GLORIA [facility] Start: 05-15-2022 End: 05-16-2022 ambulatory GLORIA SHAMAK Facility:[facility] Start: 05-15-2022 End: 05-16-2022 Encounter for general adult medical examination without abnormal findings GLORIA HUFF Facility:[facility] Start: 11-08-2021 End: 11-09-[address] KOFFI GALLARDO Facility:[facility] Start: 10-31-2021 End: 10-31-[address] KOFFI GALLARDO Facility:[facility] Start: 02-20-2021 End: 02-24-2021 ambulatory [facility] Procedures Date Procedure Procedure Detail Performing Clinician Start: 04-28-2024 SKIN / NAIL BIOPSY Alaina lie A Felter FOREIGN EXCHANGE STUDENT COORDINATOR-COMPANY DANCER Work Phone: Start: 09-02-2023 URETHRITIS/DISCHARGE PLUS VAGINITIS (HTRX) Lalitha Steward DO Work Phone: Start: 09-02-2023 IGP,APTIMA HPV,AGE GDLN Lalitha Steward DO Work Phone: Plan of Treatment Date Care Activity Detail Author Start: 09-03-2024 End: 09-03-2024 Patient encounter procedure 09/03/2024 8:30 AM EST Office Visit [facility] [address] [place] [address] Lalitha Steward, DO [address] [place], [place] [id number] [facility] Start: 04-28-2024 End: 04-28-2024 Patient encounter procedure 04/28/2024 8:30 AM EDT Office Visit [facility] [address] [place] [address] Cele Oneal, FOREIGN EXCHANGE STUDENT COORDINATOR-COMPANY DANCER [address] [place] [address] Arrived [facility] Comment on above: Arrived Dermatopathology exam Dermatopat hology exam Pathology and Cytology Timed Neoplasm of unspecified behavior of bone, soft tissue, and skin Release Upon Ordering for 1 Occurrences starting 04/28/2024 [facility] Work Phone: Comment on above: Release Upon Ordering for 1 Occurrences starting 04/28/2024 Payers Date Payer Category Payer Medicaid [facility] [employer] [place]ICA[place] [id number] 2023-Present [address] [place] [address] [id number] 1984 Unknown [id number] 1984 Unknown [id number] 1984 Unknown [id number] 1984 Unknown [id number] 1984 Unknown [id number] 1984 Unknown [id number] 1984 Unknown [id number] 1959 Unknown [id number] Social History Date Type Detail Facility Start: 08-12-2023 Tobacco smoking stat [facility] Never smoked tobacco [facility] Start: [...] of Present illness Narrative 04-28-2024 Cele Oneal, [employer] STUDENT COORDINATOR-COMPANY DANCER - 04/28/2024 8:30 AM EDT Note Date [...] section and content) DATE CREATED AUTHOR 02/25/2021 [facility] DATE CREATED AUTHOR AUTHOR'S ORGANIZ ATION 09/04/2022 [facility] DATE CREATED AUTHOR AUTHOR'S ORGANIZ ATION 04/29/2024 [facility] FOR RECORDS PERTAINING TO PATIENTS WHO [...] BE BASED ON THE PRIMARY CLINICAL RECORDS. [facility] [employer] [facility]. provides no warranty or guarantee of the accuracy or completeness of information in this document.
[2024-09-28 13:58] LABS: Estimated Average Glucose 123 mg/dL; Glycohemoglobin A1C 5.9 % (4.5-6.2)
[2024-09-28 14:15] LABS: Alanine Aminotransferase 20 U/L (14-59); Albumin Globulin Ratio 1.1; Albumin Level 3.3 g/dL (3.4-5.0); Alkaline Phosphatase 68 U/L (46-116); Anion Gap 9.3; Aspartate Amino Transferase 13 U/L (15-37); BUN Creatinine Ratio 16.9; Bilirubin Total 0.2 mg/dL (0.2-1.0); Calcium 8.3 mg/dL (8.5-10.1); Carbon Dioxide 28.6 mmol/L (21.0-32.0); Chloride 103 mmol/L (98-107); Chol HDL Ratio 2.3; Cholesterol 165 mg/dL (<=200); Estimated GFR (African America >60 (>=60 mL/min/1.73m^2); Estimated GFR (Non-African Ame >60 (>=60 mL/min/1.73m^2); Globulin 3.1 g/dL; Glucose 96 mg/dL (74-106); HDL Cholesterol 71 mg/dL (40-60); Potassium 3.9 mmol/L (3.5-5.1); Sodium 137 mmol/L (136-145); TSH W/ REFLEX FT4 3.171 uIU/mL (0.358-3.740); Total Protein 6.4 g/dL (6.4-8.2); Triglycerides 68 mg/dL (<=150); VLDL CHOLESTEROL 13.6 mg/dL
== END 2024-09-28 13:34 | disposition home or self-care (01) ==
PROVIDERS: PCP Nurse Practitioner Primary Care; Visit Provider Internal Medicine
DX: R03.0 Elevated blood-pressure reading, without diagnosis of hypertension (principal); Z01.419 Encounter for gynecological examination (general) (routine) without abnormal findings
CPT/HCPCS: 36415; 80053; 80061; 83036; 84443; 87624; 88175

== ENCOUNTER 2024-09-28 20:36 | Outpatient (REF) | payer MEDICAID, SELFPAY ==
--- OUTSIDE RECORDS SUMMARY | 2024-09-28 20:39 | XMS_ITS | CCD ---
Author Organization [facility] Care Team Providers Care Angle Shearer Name Role Phone AKUA SELLERS Primary Care [...] Active Start: 06-26-2023 take 1 capsule by [facility] once daily at mealtime venlafaxine [...] taken Amount of lidocaine used: 1.0 cc [facility] IGP,APTIMA HPV,AGE GDLNon AGE GDLN ACOG TESTING Note . [facility] Comment on above: TESTS RESULT FLAG UN ITS REF RANGE LAB Clinician Provided Cytology Information Source.............Vagina No. of containers..01 ThinPrep Vial Age Algo ACOG Nataly... FLAG LEGEND: L-Low Normal,H-High Normal,LL-Alert Low,HH-Alert High <-Panic Low,>-Panic High,A-Abnormal,AA-Critical Abnormal Performed at: 01 =G [facility] [place] [place] [address] Yaima Gould MD, HPV APTIMA Negative Negative [facility] Comment on above: This nucleic acid am plification test detects fourteen high- risk HPV types (16,18,31,33,35,39,45,51,52,56,58,59,66,68) without differentiation. Performed at: =G [address], [place] [id number] [employer] Tender: Yaima Gould MD, Phone: [phone] Performed at: - [address] [id number] [employer] Tender: Yaima Gould MD, Phone: [phone] IGP, APTIMA HPV, RFX 16/18,45 Note . [facility] Comment on above: TESTS RESULT FLAG UN ITS REF RANGE LAB DIAGNOSIS: 02 NEGATIVE FOR INTRAEPITHELIAL LESION OR MALIGNANCY. Specimen adequacy: 02 Satisfactory for evaluation. Performed by: Irish Melendez, Salmon Gillnet Vessel Operator ([facility]) . 02 Note: Note 02 [...] High <-Panic Low,>-Panic High,A-Abnormal,AA-Critical Abnormal Performed at: [facility] [address] [place] [address] Yaima Gould MD, SPATULA-ALONE VAGINA [facility] URETHRITIS/DISCHARGE PLUS VA GINITIS (HTRX)on 09-04-2023 ATOPOBIUM VAGINAE 0 [facility] ATOPOBIUM VAGINAE Not detected [facility] BVAB 2,3 (BACTERIAL VAGINOSIS ASSOCIATED BACTERIA 2, 3); MOBILUNCUS SPP 0 [facility] Healthcare BVAB 2,3 (BACTERIAL VAGINOSIS ASSOCIATED BACTERIA 2, 3); MOBILUNCUS SPP Not detected [facility] TERRANCE ALBICANS, PARAPSILOSIS, TROPICALIS 0 [facility] TERRANCE ALBICANS, PARAPSILOSIS, TROPICALIS Not detected [facility] TERRANCE GLABRATA 0 [facility] TERRANCE GLABRATA Not detected [facility] TERRANCE KRUSEI 0 [facility] TERRANCE KRUSEI Not detected [facility] CHLAMYDIA TRACHOMATIS 0 [facility] CHLAMYDIA TRACHOMATIS Not detected [facility] Healthcare GARDNERELLA VAGINALIS 0 [facility] GARDNERELLA VAGINALIS Not detected [facility] MEGASPHAERA (TYPES 1, 2) 0 [facility] Healthcare MEGASPHAERA (TYPES 1, 2) Not detected [facility] MYCOPLASMA GENITALIUM 0 [facility] MYCOPLASMA GENITALIUM Not detected [facility] NEISSERIA GONORRHOEAE 0 [facility] Healthcare NEISSERIA GONORRHOEAE Not detected [facility] TRICHOMONAS VAGINALIS 0 [facility] TRICHOMONAS VAGINALIS Not detected [facility] Healthcare PAP ACOG PANEL 2: 30 to 65on 09-04-2022 . . Normal [facility] Comment on above: Result Comment: Perf ormed at: WB Performed By: #### [id number] #### [facility] [address] [address] [address] Jaquan Egan Age Gdln ACOG Testing 30-65 Normal [facility] Comment on above: Performed By: #### [id number] #### [facility] [address] [address] [address] Jaquan Egan DIAGNOSIS: Comment Normal [facility] Comment on above: Result Comment: NEGA TIVE FOR INTRAEPITHELIAL LESION OR MALIGNANCY. Performed at: WB Performed By: #### [id number] #### [facility] [address] [address] [address] Jaquan Egan HPV Aptima Negative Normal Negative [facility] Comment on above: Result Comment: This nucleic acid amplification test detects fourteen high-risk HPV types (16,18,31,33,35,39,45,51,52,56,58,59,66,68) without differentiation. Performed at: =G Performed By: #### [id number] #### [facility] [address] [place] [address] Dr. Jaquan Egan HPV Genotype Reflex Comment Normal [facility] Comment on above: Result Comment: Crit eria not met, HPV Genotype not performed. Performed at: WB Performed By: #### [id number] #### [facility] [address] [place] [address] Dr. Jaquan Egan Methodology: Comment Normal [facility] Comment on above: Result Comment: This liquid based ThinPrep(R) pap test was screened with the use of an image guided system. Performed at: WB Performed By: #### [id number] #### [facility] [address] [place] [address] Dr. Jaquan Egan Note: Comment Normal [facility] Comment on above: Result Comment: The Pap smear is a screening test designed to aid in the detection of premalignant and malignant conditions of the uterine cervix. It is not a diagnostic procedure and should not be used as the sole means of detecting cervical cancer. Both false-positive and false-negative reports do occur. . Performed at: WB Performed By: #### [id number] #### [facility] [address] [place] [address] Dr. Jaquan Egan Performed by: Comment Normal [facility] Comment on above: Result Comment: Duc Lewis, Salmon Gillnet Vessel Operator (ASCP) Performed at: WB Performed By: #### [id number] #### [facility] [address] [place] [address] Dr. Jaquan Egan Specimen adequacy: Comment Normal [facility] Comment on above: Result Comment: Sati sfactory for evaluation. No endocervical component is identified. Performed at: WB Performed By: #### [id number] #### [facility] [address] [place] [address] Dr. Jaquan Egan CBC AUTO DIFFon 05-15-2022 BASO # 0.1 103/ul Normal 0.0-0.1 [facility] Comment on above: Performed By: #### C BC #### [facility] [address] [place] [address] Dr. Jaquan Egan Basophils/100 WBC (Bld) 0.8 % Normal 0.2-2.0 [facility] Comment on above: Performed By: #### C BC #### [facility] [address] [place] [address] Dr. Jaquan Egan EO # 0.1 103/ul Normal 0.0-0.7 [facility] Comment on above: Performed By: #### C BC #### [facility] [address] [place] [address] Dr. Jaquan Egan Eosinophils/100 WBC (Bld) 1.6 % Normal 0.9-7.0 [facility] Comment on above: Performed By: #### C BC #### [facility] [address] [place] [address] Dr. Jaquan Egan Erythrocyte distribution width (RBC) [Ratio] 12.8 % Normal 11.0-15.0 [facility] Comment on above: Performed By: #### C BC #### [facility] [address] [place] [address] Dr. Jaquan Egan Hematocrit (Bld) [Volume fraction] 41.5 % Normal 36.0-48.0 [facility] Comment on above: Performed By: #### C BC #### [facility] [address] [place] [address] Dr. Jaquan Egan Hemoglobin (Bld) [Mass/Vol] 13.0 g/dL Normal 12.0-16.0 [facility] Comment on above: Performed By: #### C BC #### [facility] [address] [place] [address] Dr. Jaquan Egan IG # 0.02 10e3/ul Normal 0.00-0.03 [facility] Comment on above: Performed By: #### C BC #### [facility] [address] [place] [address] Dr. Jaquan Egan IG % 0.3 % Normal 0.0-0.5 [facility] Comment on above: Performed By: #### C BC #### [facility] [address] [place] [address] Dr. Jaquan Egan LYMPH # 1.7 103/ul Normal 1.2-3.8 [facility] Comment on above: Performed By: #### C BC #### [facility] [address] [place] [address] Dr. Jaquan Egan Lymphocytes/100 WBC (Bld) 22.2 % Normal 20.5-60.0 [facility] Comment on above: Performed By: #### C BC #### [facility] [address] [place] [address] Dr. Jaquan Egan MANUAL DIFF REQ NO Normal [facility] Comment on above: Performed By: #### C BC #### [facility] [address] [place] [address] Dr. Jaquan Egan MCH (RBC) [Entitic mass] 26.5 pg Critically low 26.7-34.0 [facility] Comment on above: Performed By: #### C BC #### [facility] [address] [place] [address] Dr. Jaquan Egan MCHC (RBC) [Mass/Vol] 31.3 g/dL Normal 29.9-35.2 [facility] Comment on above: Performed By: #### C BC #### [facility] [address] [place] [address] Dr. Jaquan Egan MCV (RBC) [Entitic vol] 84.7 fL Normal 81.0-99.0 [facility] Comment on above: Performed By: #### C BC #### [facility] [address] [place] [address] Dr. Jaquan Egan MONO # 0.5 103/ul Normal 0.3-0.8 [facility] Comment on above: Performed By: #### C BC #### [facility] [address] [place] [address] Dr. Jaquan Egan Monocytes/100 WBC (Bld) 6.8 % Normal 1.7-12.0 [facility] Comment on above: Performed By: #### C BC #### [facility] [address] [address] [address] Jaquan Egan NEUT # 5.1 103/ul Normal 1.4-6.5 [facility] Comment on above: Performed By: #### C BC #### [facility] [address] [address] [address] Jaquan Egan Neutrophils/100 WBC (Bld) 68.3 % Normal 43.0-75.0 [facility] Comment on above: Performed By: #### C BC #### [facility] [address] [address] [address] Jaquan Egan Platelet mean volume (Bld) [Entitic vol] 10.0 fL Normal 9.5-13.5 [facility] Comment on above: Performed By: #### C BC #### [facility] [address] [place] [address] Dr. Jaquan Egan PLT 361 103/ul Normal 150-450 [facility] Comment on above: Performed By: #### C BC #### [facility] [address] [place] [address] Dr. Jaquan Egan RBC 4.90 106/ul Normal 4.20-5.40 [facility] Comment on above: Performed By: #### C BC #### [facility] [address] [place] [address] Dr. Jaquan Egan WBC 7.5 103/ul Normal 4.0-11.0 [facility] Comment on above: Performed By: #### C BC #### [facility] [address] [place] [address] Dr. Jaquan Egan GLYCOHEMOGLOBIN A1Con 2021 ADA RECOMMENDATION SEE BELOW Normal [facility] [place] [facility] Comment on above: Result Comment: ADA RECOMMENDED LIMIT 4.0 - 6.0 ADA THERAPEUTIC TARGET < 7.0 ACTION SUGGESTED > 7.0 Performed By: #### A 1C #### [facility] [address] [place] [address] Dr. Jaquan Egan Glucose [Mass/Vol] 111 mg/dL Normal [facility] [place] [facility] Comment on above: Performed By: #### A 1C #### [facility] [address] [address] [address] Jaquan Egan HbA1c (Bld) [Mass fraction] 5.5 % Normal 4.5-6.2 [facility] Comment on above: Performed By: #### A 1C #### [facility] [address] [address] [address] Jaquan Egan LIPID PROFILEon 05-15-2022 CHOL-HDL RATIO NORM SEE BELOW Normal [facility] Comment on above: Result Comment: 3.3 - 4.4 LOW RISK 4.4 - 7.1 AVERAGE RISK 7.1 - 11.0 MODERATE RISK >11.0 HIGH RISK Performed By: #### L IPID, CMP, TSH #### [facility] [address] [address] [address] Jaquan Egan Cholesterol [Mass/Vol] 182 mg/dL Normal <=200 [facility] Comment on above: Performed By: #### L IPID, CMP, TSH #### [facility] [address] [address] [address] Jaquan Egan Cholesterol in HDL [Mass/Vol] 68 mg/dL Critically high 40-60 [facility] Comment on above: Performed By: #### L IPID, CMP, TSH #### [facility] [address] [address] [address] Jaquan Egan Cholesterol in LDL [Mass/Vol] 105.8 mg/dL Normal [facility] Comment on above: Performed By: #### L IPID, CMP, TSH #### [facility] [address] [address] [address] Jaquan Egan Cholesterol.total/Ch olesterol in HDL [Mass ratio] 2.7 {ratio} Normal [facility] Comment on above: Performed By: #### L IPID, CMP, TSH #### [facility] [address] [address] [address] Jaquan Egan HDL NORMAL > or = 60 mg/dl - LO W CARDIOVASCULAR RISK <40 mg/dl - HIGH CARDIOVASCULAR RISK Normal [facility] Comment on above: Performed By: #### L IPID, CMP, TSH #### [facility] [address] [address] [address] Jaquan Egan LDL CALC NORMAL SEE BELOW Normal [facility] Comment on above: Result Comment: <100 mg/dl OPTIMAL 100 - 129 mg/dl NEAR OR ABOVE OPTIMAL 130 - 159 mg/dl BORDERLINE HIGH 160 - 189 mg/dl HIGH >190 mg/dl VERY HIGH Performed By: #### L IPID, CMP, TSH #### [facility] [address] [address] [address] Jaquan Egan Triglyceride [Mass/Vol] 41 mg/dL Normal <=150 [facility] Comment on above: Performed By: #### L IPID, CMP, TSH #### [facility] [address] [address] [address] Jaquan Egan VLDL CALC 8.2 mg/dL Normal [facility] Comment on above: Performed By: #### L IPID, CMP, TSH #### [facility] [address] [address] [address] Jaquan Egan PROF 14(COMP METB)on 05-15- 022 Albumin [Mass/Vol] 3.7 g/dL Normal 3.4-5.0 [facility] Comment on above: Performed By: #### L IPID, CMP, TSH #### [facility] [address] [address] [address] Jaquan Egan Albumin/Globulin [Mass ratio] 0.9 {ratio} Normal [facility] Comment on above: Performed By: #### L IPID, CMP, TSH #### [facility] [address] [address] [address] Jaquan Egan ALP [Catalytic activity/Vol] 85 U/L Normal 46-116 [facility] Comment on above: Performed By: #### L IPID, CMP, TSH #### [facility] [address] [address] [address] Jaquan Egan ALT [Catalytic activity/Vol] 18 U/L Normal 14-59 [facility] Comment on above: Performed By: #### L IPID, CMP, TSH #### [facility] [address] [address] [address] Jaquan Egan Anion gap [Moles/Vol] 9.8 mmol/L Normal [facility] Comment on above: Performed By: #### L IPID, CMP, TSH #### [facility] [address] [address] [address] Jaquan Egan AST [Catalytic activity/Vol] 13 U/L Critically low 15-37 [facility] Comment on above: Performed By: #### L IPID, CMP, TSH #### [facility] [address] [address] [address] Jaquan Egan Bilirubin [Mass/Vol] 0.3 mg/dL Normal 0.2-1.0 [facility] Comment on above: Performed By: #### L IPID, CMP, TSH #### [facility] [address] [address] [address] Jaquan Egan Calcium [Mass/Vol] 8.8 mg/dL Normal 8.5-10.1 [facility] Comment on above: Performed By: #### L IPID, CMP, TSH #### [facility] [address] [address] [address] Jaquan Egan Chloride [Moles/Vol] 104 mmol/L Normal 98-107 [facility] Comment on above: Performed By: #### L IPID, CMP, TSH #### [facility] [address] [address] [address] Jaquan Egan CO2 [Moles/Vol] 26.0 mmol/L Normal 21.0-32.0 [facility] Comment on above: Performed By: #### L IPID, CMP, TSH #### [facility] [address] [address] [address] Jaquan Egan Creatinine [Mass/Vol] 0.78 mg/dL Normal 0.55-1.02 [facility] Comment on above: Performed By: #### L IPID, CMP, TSH #### [facility] [address] [address] [address] Jaquan Egan EGFR-AF LATVIAN >60 Normal >=60 [facility] Comment on above: Performed By: #### L IPID, CMP, TSH #### [facility] [address] [address] [address] Jaquan Egan EGFR-NON AF LATVIAN >60 Normal >=60 [facility] Comment on above: Performed By: #### L IPID, CMP, TSH #### [facility] [address] [place] [address] Dr. Jaquan Egan Globulin (S) [Mass/Vol] 4.0 g/dL Normal [facility] Comment on above: Performed By: #### L IPID, CMP, TSH #### [facility] [address] [address] [address] Jaquan Egan Glucose [Mass/Vol] 100 mg/dL Normal 74-106 [facility] Comment on above: Performed By: #### L IPID, CMP, TSH #### [facility] [address] [place] [address] Dr. Jaquan Egan Potassium [Moles/Vol] 3.8 mmol/L Normal 3.5-5.1 [facility] Comment on above: Performed By: #### L IPID, CMP, TSH #### [facility] [address] [place] [address] Dr. Jaquan Egan Protein [Mass/Vol] 7.7 g/dL Normal 6.4-8.2 [facility] [place] [facility] Comment on above: Performed By: #### L IPID, CMP, TSH #### [facility] [address] [place] [address] Dr. Jaquan Egan Sodium [Moles/Vol] 136 mmol/L Normal 136-145 [facility] Comment on above: Performed By: #### L IPID, CMP, TSH #### [facility] [address] [place] [address] Dr. Jaquan Egan Urea nitrogen [Mass/Vol] 12.0 mg/dL Normal 7.0-18.0 [facility] Comment on above: Performed By: #### L IPID, CMP, TSH #### [facility] [address] [place] [address] Dr. Jaquan Egan Urea nitrogen/Creatinine [Mass ratio] 15.4 mg/mg [facility] Comment on above: Performed By: #### L KB ESPINOZA, TSH #### [facility] [address] [place], [place] [address] Dr. Jaquan Egan TSHon 05-15-2022 TSH 2.187 uIU/mL Normal 0.358-3.740 [facility] Comment on above: Performed By: #### L KB ESPINOZA, TSH #### [facility] [address] [id number] [address] Jaquan Egan US PELVIS AND TRANSVAGon [...] by: EMY MORTON Date: 2021-11-08 10:51 Normal [facility] PAP ACOG PANEL 2: 30 to 65on 11-07-2021 . . Normal [facility] Comment on above: Result Comment: Perf ormed at: WB Performed By: #### [id number] #### [facility] [address] [place] [address] Dr. Jaquan Egan Age Gdln ACOG Testing 30-65 [facility] Comment on above: Performed By: #### 4 [id number] #### [facility] [address] [address] [address] Jaquan Egan DIAGNOSIS: Comment Normal [facility] Comment on above: Result Comment: NEGA TIVE FOR INTRAEPITHELIAL LESION OR MALIGNANCY. Performed at: WB Performed By: #### 4 [id number] #### [facility] [address] [place] [address] Dr. Jaquan Egan HPV Aptima Negative Normal Negative [facility] Comment on above: Result Comment: This nucleic acid amplification test detects fourteen high-risk HPV types (16,18,31,33,35,39,45,51,52,56,58,59,66,68) without differentiation. Performed at: =G Performed By: #### 4 [id number] #### [facility] [address] [place] [address] Dr. Jaquan Egan Methodology: Comment Normal [facility] Comment on above: Result Comment: This liquid based ThinPrep(R) pap test was screened with the use of an image guided system. Performed at: WB Performed By: #### 4 [id number] #### [facility] [address] [place] [address] Dr. Jaquan Egan Note: Comment Normal [facility] Comment on above: Result Comment: The Pap smear is a screening test designed to aid in the detection of premalignant and malignant conditions of the uterine cervix. It is not a diagnostic procedure and should not be used as the sole means of detecting cervical cancer. Both false-positive and false-negative reports do occur. . Performed at: WB Performed By: #### [id number] #### [facility] [address] [place] [address] Dr. Jaquan Egan Performed by: Comment Normal [facility] Comment on above: Result Comment: Guevara Carlos Salmon Gillnet Vessel Operator (ASCP) Performed at: WB Performed By: #### 4 [id number] #### [facility] [address] [place] [address] Dr. Jaquan Egan Specimen adequacy: Comment Normal [facility] Comment on above: Result Comment: Sati sfactory for evaluation. No endocervical component is identified. Performed at: WB Performed By: #### 4 [id number] #### [facility] [address] [place] [address] Dr. Jaquan Egan Encounters Encounter Date Encounter Type Care Provider Facility Start: 04-28-2024 End: 04-28-2024 Bamboo flowsheet Cele A Felter SKIN LAP BONDER-CHAIRMAN PRESIDENT AND CHIEF EXECUTIVE OFFICER Work Phone: [facility] Start: 04-28-2024 End: 04-28-2024 Bamboo flowsheet Cele A Felter SKIN LAP BONDER-CHAIRMAN PRESIDENT AND CHIEF EXECUTIVE OFFICER Work Phone: [facility] Start: 04-28-2024 End: 04-28-2024 Patient encounter procedure Cele Helton Felter SKIN LAP BONDER-CHAIRMAN PRESIDENT AND CHIEF EXECUTIVE OFFICER Work Phone: [facility] Comment on [...] adult medical examination without abnormal findings GLORIA [facility] Start: 05-15-2022 End: 05-16-2022 ambulatory GLORIA SHAMTN Facility:[facility] Start: 05-15-2022 End: 05-16-2022 Encounter for general adult medical examination without abnormal findings GLORIA HUFF Facility:[facility] Start: 11-08-2021 End: 11-09-[address] KOFFI GALLARDO Facility:[facility] Start: 10-31-2021 End: 10-31-[address] KOFFI GALLARDO Facility:[facility] Start: 02-20-2021 End: 02-24-2021 ambulatory [facility] Procedures Date Procedure Procedure Detail Performing Clinician Start: 04-28-2024 SKIN / NAIL BIOPSY Alaina lie A Felter SKIN LAP BONDER-CHAIRMAN PRESIDENT AND CHIEF EXECUTIVE OFFICER Work Phone: Start: 09-02-2023 URETHRITIS/DISCHARGE PLUS VAGINITIS (HTRX) Lalitha Steward DO Work Phone: Start: 09-02-2023 IGP,APTIMA HPV,AGE GDLN Lalitha Steward DO Work Phone: Plan of Treatment Date Care Activity Detail Author Start: 09-03-2024 End: 09-03-2024 Patient encounter procedure 09/03/2024 8:30 AM EST Office Visit [facility] [address] [address] Lalitha Steward, DO [address] [place], [place] [id number] [facility] Start: 04-28-2024 End: 04-28-2024 Patient encounter procedure 04/28/2024 8:30 AM EDT Office Visit [facility] [address] [place] [address] Cele Oneal, SKIN LAP BONDER-CHAIRMAN PRESIDENT AND CHIEF EXECUTIVE OFFICER [address] [place] [address] Arrived [facility] Comment on above: Arrived Dermatopathology exam Dermatopat hology exam Pathology and Cytology Timed Neoplasm of unspecified behavior of bone, soft tissue, and skin Release Upon Ordering for 1 Occurrences starting 04/28/2024 [facility] Work Phone: Comment on above: Release Upon Ordering for 1 Occurrences starting 04/28/2024 Payers Date Payer Category [facility] [facility] [facility] [employer] [place] [id number] 2023-Present [address] [place] [address] [id number] 1984 Unknown [id number] 1984 Unknown [id number] 1984 Unknown [id number] 2.16.840.1.540421.3.579.2.593 1984 Unknown [id number] 2.16.840.1.845522.3.579.2.593 1984 Unknown [id number] 2.16.840.1.630122.3.579.2.593 1984 Unknown [id number] 2.16.840.1.947903.3.579.2.1259 1984 Unknown [id number] 1959 Unknown [id number] Social History Date Type Detail Facility Start: 08-12-2023 Tobacco smoking stat [facility] Never smoked tobacco [facility] Start: 09-02-2023 [...] of Present illness Narrative 04-28-2024 Cele Oneal, [employer] PRESIDENT AND [employer]IVE OFFICER - 04/28/2024 8:30 AM EDT Note Date [...] section and content) DATE CREATED AUTHOR 02/25/2021 [facility] DATE CREATED AUTHOR AUTHOR'S ORGANIZ ATION 09/04/2022 [facility] DATE CREATED AUTHOR AUTHOR'S ORGANIZ ATION 04/29/2024 [facility] FOR RECORDS PERTAINING TO PATIENTS WHO ARE [...] BE BASED ON THE PRIMARY CLINICAL RECORDS. [facility]. provides no warranty or guarantee of the accuracy or completeness of information in this document.
[2024-10-02 15:09] LABS: Age Gdln ACOG Testing Note (.); HPV Aptima Negative (Negative); IGP, Aptima HPV, rfx 16/18,45 Note (.)
== END 2024-09-28 20:37 | disposition home or self-care (01) ==
LOC: LAB 20:36
PROVIDERS: PCP Nurse Practitioner Primary Care; Visit Provider Physician Assistant
DX: Z01.419 Encounter for gynecological examination (general) (routine) without abnormal findings (principal)
CPT/HCPCS: 87624; 88175